=== PATIENT | female | born 2005 | race Caucasian/White ===

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

== ENCOUNTER 2024-12-18 02:38 | Emergency (ER) | payer MEDICAID, SELFPAY ==
[2024-12-18 02:38] VITALS: BP 113/85; PULSE 69; RESP 16; TEMP 36.4; O2SAT 99; BMI 31.1
--- NOTE | 2024-12-18 03:00 | EX.ED.DYSGE1 ---
HPI History of Present Illness Chief Complaint: Cold Sx Informant: patient Narrative Narrative: Patient is a 19-year-old female who reports a past medical history of allergies. She states that her fianc? has been sick with mild congestion and cough and ear pain. She states that today she has had a significant increase to her allergy symptoms with nasal congestion ear pressure cough and difficulty sleeping. She states she is unsure if this is related to just simply worsening of her allergies or potential infection and therefore she comes in for evaluation Patient denies any [facility] Medical History Migraine Clavicle fracture Home Medications ?Medication ?Instructions ?Recorded ?Last Taken ?Type azelastine 137 mcg (0.1 %) nasal 2 spray intranasal BID #30 mL 12/18/24 Unknown Rx spray codeine 10 mg-guaifenesin 100 mg/5 10 ml PO 4X/DAY PRN cold symptoms 12/18/24 Unknown Rx mL oral liquid 7 days #280 mL prednisone 20 mg tablet 40 mg (2 x 20 mg) PO DAILY 7 days 12/18/24 Unknown Rx #14 tabs Allergy/AdvReac Type Severity Reaction Status Date / Time No Known Allergies Allergy Verified 12/18/24 02:41 Social History household members: significant other Smoking Status: Never smoker substance use type: does not use ROS ROS ED Constitutional Constitutional ED: Denies chills or fever(s) Eyes Eyes: Denies change in vision ENT ENT ED: Reports ear pain, rhinorrhea and sore throat Cardiovascular Cardiovascular: Denies chest pain Respiratory/Chest Respiratory/Chest: Reports cough; Denies dyspnea Gastrointestinal Gastrointestinal: Denies abdominal pain, diarrhea, nausea or vomiting Genitourinary Genitourinary ED: Denies dysuria Musculoskeletal Musculoskeletal: Reports myalgias Integumentary Denies rash Neurologic Neurologic: Reports headache(s) Hematologic/Lymphatic Hematologic/Lymphatic: Denies easy bleeding or easy bruising Allergic/Immunologic Allergic/Immunologic ED: Denies mouth swelling or tongue swelling EXAM Physical Exam Const Vital Signs: 12/18/24 02:38 12/18/24 03:13 Temperature 97.6 F L Temperature Source Oral Pulse Rate 69 Respiratory Rate 16 Respiratory Effort Normal Respiratory Pattern Normal Blood Pressure 113/85 H Blood Pressure Mean 94 Pulse Ox 99 Oxygen Delivery Method Room Air Positive well nourished and well developed General Appearance ED: well developed; Negative for pallor HEENT HEENT Narrative: Bilateral canals are normal; bilateral TMs are retracted consistent with eustachian tube dysfunction but show no secondary findings to suggest infection Nasal mucosa is hyperemic and boggy with enlarged inferior nasal turbinates; there is purulent discharge present bilaterally No tongue or lip swelling no oral lesions no airway edema or compromise. There is cobblestoning noted in the posterior pharynx consistent with sinus drainage No significant pain with palpation over top of the frontal maxillary or ethmoid sinuses Eyes PERRL and EOMs intact bilaterally Neck supple Neck Narrative: Positive anterior cervical lymphadenopathy noted Resp normal respiratory effort and clear to auscultation bilaterally Cardio regular rate and regular rhythm Extremity normal to inspection Neuro oriented x3, CN's II-XII intact bilaterally and no sensory deficits noted Sensorium / Orientation: alert Motor Exam: strength 5/5 throughout Psych mental status grossly normal Skin no rashes or lesions noted and no wounds General Skin Exam: Negative for jaundice or pallor MDM MDM MDM Narrative Medical decision making narrative: Patient arrived to ER with stable vitals. She reported essentially 1 day a of increased sinus congestion drainage and cough with known sick contacts at home with similar symptoms. She is not hypoxic she is not in respiratory distress her breath sounds are clear and therefore I have low concern for pneumonia and I do not feel the need for a chest x-ray. Patient could have viral infection such as COVID influenza or RSV but as she is not hypoxic or in respiratory distress it would not change treatment options and therefore there is no need to obtain a viral swab either. The patient was informed that based on her history and exam her worsening symptoms are not due to worsening of her allergies but due to a viral upper respiratory tract infection. Also based on the fact she does not have significant sinus pain and symptoms only and present for roughly 1 day I have very low concern for bacterial sinusitis and therefore there is no need for emergent antibiotics. The patient will be placed on symptomatic medication to help control congestion and drainage and cough but without signs of systemic infection or respiratory distress she is otherwise safe for discharge History & Record Review Discussion w/independent historian: Patient Discharge Plan Triage Chief Complaint: Cold Sx ED Provider: Mamadou Malcolm Dx/Rx/DC Orders Clinical Impression: Viral upper respiratory infection, Acute dysfunction of both eustachian tubes Instructions: ED URI, Viral, No Abx (Adult) Prescriptions: New prednisone 20 mg tablet 40 mg PO DAILY 7 Days Qty: 14 0RF azelastine 137 mcg (0.1 %) spray,non-aerosol 2 spray intranasal BID Qty: 30 0RF Rx Instructions: administer into each nostril codeine-guaifenesin 10-100 mg/5 mL liquid 10 ml PO 4X/DAY PRN (Reason: cold symptoms) 7 Days Qty: 280 0RF Primary Care Provider: Jean Horne Referrals: Eriberto Hinton MD [Med Staff - Courtesy Staff, Ear Nose Throat (ENT)] Referral Note: Allergies Jean Horne, DO [Primary Care Provider, Internal Medicine] Activity Restrictions/Additional Instructions: Your history and exam is consistent with an upper respiratory tract infection. This is a virus that you picked up from out in the community. It is causing your underlying congestion from your allergies to be much worse. It should resolve in the next 2 to 3 weeks. Typically the first 5 to 7 days of the most severe. Take the prescribed medication as directed to help control symptoms. You may also use [id number] Afrin nasal spray by taking 2 sprays in each nostril at night and you can do this for 6 consecutive nights but then you must quit see do not become addicted to the nasal spray. Follow-up with your family doctor and/or ENT to discuss further allergy testing and workup and return to the ER should you have any further concerns Print Language: Persian Disposition Disposition: Home, Self Care Discharge Date/Time: 12/18/24 03:13
== END 2024-12-18 03:13 | disposition home or self-care (01) ==
PROVIDERS: Emergency Provider Emergency Medicine; PCP Family Medicine; Visit Provider Emergency Medicine
DX: J06.9 Acute upper respiratory infection, unspecified (principal); H69.93 Unspecified Eustachian tube disorder, bilateral
CPT/HCPCS: 99282

== ENCOUNTER 2025-01-26 06:20 | Emergency (ER) | payer MEDICAID, SELFPAY ==
[2025-01-26 06:21] VITALS: BP 117/68; PULSE 69; RESP 16; TEMP 36.6; O2SAT 100; BMI 32.3
[2025-01-26] MEDS: DiphenhydrAMINE 50 MG/ML Syringe IV (06:50)
[2025-01-26] MEDS: Ketorolac 30 MG/ML Syringe IV (06:50)
[2025-01-26] MEDS: 0.9% Normal Saline (1000mL) 1,000 ML 999 ML IV (06:51)
--- OUTSIDE RECORDS SUMMARY | 2025-01-26 07:06 | XMS RPT_ITS | CCD ---
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 Recommendations. Performed By: #### 4 6141 #### MH LAB [address] [address] Mauricio Doll M.D. [id number] Urea nitrogen [Mass/Vol] 6 mg/dL Low 8-25 [facility] Comment on above: Order Comment: [facility] has implemented the eGFR calculation approach that does not have a coefficient for race that conforms to the NKF-ASN Task Force Recommendations. Performed By: #### 4 6124 #### LAB [address] [address] Mauricio Doll M.D. [id number] Urea nitrogen/Creatinine [Mass ratio] 11.3 mg/mg Normal 10.0-20.0 [facility] Comment on above: Order Comment: [facility] has implemented the eGFR calculation approach that does not have a coefficient for race that conforms to the NKF-ASN Task Force Recommendations. Performed By: #### 4 6124 #### LAB [address] [address] Mauricio Doll M.D. [id number] CBC WITH AUTO DIFFERENTIALon 07-22-2023 AUTO NRBC 0.0 % [facility] Comment on above: Performed By: #### L [id number] #### LAB [address] [address] Mauricio Doll M.D. [id number] AUTO NRBC ABS COUNT 0.00 K/mcL Normal 0.00-0.00 [facility] Comment on above: Performed By: #### L [id number] #### LAB [address] [address] Mauricio Doll M.D. [id number] BASOPHILS ABSOLUTE COUNT 0.02 K/mcL Normal 0.00-0.30 [facility] Comment on above: Performed By: #### L [id number] #### LAB [address] [place] [address] Mauricio Doll M.D. [id number] Basophils/100 WBC (Bld) 0.2 % Normal [facility] Comment on above: Performed By: #### L [id number] #### LAB [address] [address] Mauricio Doll M.D. [id number] Eosinophils (Bld) [#/Vol] 0.13 10*3/uL Normal 0.00-0.50 [facility] Comment on above: Performed By: #### L [id number] #### LAB [address] [place] [address] Mauricio Doll M.D. [id number] Eosinophils/100 WBC (Bld) 1.5 % Normal [facility] Comment on above: Performed By: #### L [id number] #### LAB [address] [address] Mauricio Doll M.D. [id number] Erythrocyte distribution width (RBC) [Ratio] 13.8 % Normal 11.6-14.8 [facility] Comment on above: Performed By: #### L [id number] #### LAB [address] [address] Mauricio Doll M.D. [id number] Hematocrit (Bld) [Volume fraction] 36.5 % Normal 36.0-46.0 [facility] Comment on above: Performed By: #### L [id number] #### LAB [address] [address] Mauricio Doll M.D. [id number] Hemoglobin (Bld) [Mass/Vol] 11.3 g/dL Low 12.0-16.0 [facility] Comment on above: Performed By: #### L [id number] #### LAB [address] [address] Mauricio Doll M.D. [id number] IG ABSOLUTE 0.03 K/mcL Normal 0.00-0.30 [facility] Comment on above: Performed By: #### L [id number] #### LAB [address] [address] Mauricio Doll M.D. [id number] IG PERCENT 0.30 % Normal [facility] Comment on above: Result Comment: The IG parameter is the percentage of metamyelocytes, myelocytes and promyelocytes. An immature granulocyte count (IG) of 1% or more suggests the possibility of infection, an IG count of 3% is very likely related to an infection. Performed By: #### L [id number] #### LAB [address] [place] [address] Mauricio Doll M.D. [id number] Lymphocytes (Bld) [#/Vol] 1.89 10*3/uL Normal 0.90-4.00 [facility] Comment on above: Performed By: #### L [id number] #### LAB [address] [address] Mauricio Doll M.D. [id number] Lymphocytes/100 WBC (Bld) 21.7 % Normal [facility] Comment on above: Performed By: #### L [id number] #### LAB [address] [address] Mauricio Doll M.D. [id number] MCH (RBC) [Entitic mass] 25.6 pg Low 26.0-34.0 [facility] Comment on above: Performed By: #### L [id number] #### LAB [address] [address] Mauricio Doll M.D. [id number] MCV (RBC) [Entitic vol] 82.8 fL Normal 80.0-100.0 [facility] Comment on above: Performed By: #### L [id number] #### LAB [address] [address] Mauricio Doll M.D. [id number] MEAN CORPUSCULAR HEMOGLOBIN CONC 31.0 g/dL Normal 31.0-37.0 [facility] Comment on above: Performed By: #### L [id number] #### LAB [address] [address] Mauricio Doll M.D. [id number] Monocytes (Bld) [#/Vol] 0.64 10*3/uL Normal 0.30-0.90 [facility] Comment on above: Performed By: #### L [id number] #### LAB [address] [address] Mauricio Doll M.D. [id number] Monocytes/100 WBC (Bld) 7.3 % Normal [facility] Comment on above: Performed By: #### L [id number] #### LAB [address] [place] [address] Mauricio Doll M.D. [id number] NEUTROPHILS ABSOLUTE COUNT 6.00 K/mcL Normal 1.70-7.00 [facility] Comment on above: Performed By: #### L [id number] #### LAB [address] [address] Mauricio Doll M.D. [id number] Neutrophils/100 WBC (Bld) 69.0 % Normal [facility] Comment on above: Performed By: #### L [id number] #### MH LAB [address] [address] Mauricio Doll M.D. [id number] Platelet mean volume (Bld) [Entitic vol] 9.5 fL Normal 9.4-12.4 [facility] Comment on above: Performed By: #### L [id number] #### MH LAB [address] [address] Mauricio Doll M.D. [id number] Platelets (Bld) [#/Vol] 292 10*3/uL Normal 150-400 [facility] Comment on above: Performed By: #### L [id number] #### MH LAB [address] [address] Mauricio Doll M.D. [id number] RBC (Bld) [#/Vol] 4.41 10*6/uL Normal 4.00-5.20 [facility] Comment on above: Performed By: #### L [id number] #### MH LAB [address] [address] Mauricio Doll M.D. [id number] WBC (Bld) [#/Vol] 8.71 10*3/uL Normal 4.50-11.00 [facility] Comment on above: Performed By: #### L [id number] #### MH LAB [address] [address] Mauricio Doll M.D. [id number] ED Prov Noteon 07-22-2023 ED Prov Note [facility] ED DIANNA Note: NAME: Onofre Denise 18 y.o. CSN: [id number] PCP: No, Physician History: Chief Complaint: Vaginal Bleeding HPI: The history was obtained from the patient and spouse. Onofre is a 18 y.o. female who presents with a chief complaint of Vaginal Bleeding. Patient is and unknown LMP due to being on control. Started having symptoms a couple days ago and went to have labs drawn which showed HCG 38. Started having increased cramping and bleeding - only small amounts, not saturating a pad, mostly with wiping so she came back to the ER for further evaluation. No urinary symptoms, fever, chills, chest pain, shortness of breath, nausea, vomiting, diarrhea. She has an apt August 18 with unknown OB in [place], [place]. PMHx: Past Medical History: Diagnosis Date Migraines PMSx: History reviewed. No pertinent surgical history. FAM. Hx: History reviewed. No pertinent family history. SOC. Hx: Social History Socioeconomic History Marital status: Single Tobacco Use Smoking status: Never Smokeless tobacco: Never Vaping Use Vaping Use: Never used Substance and Sexual Activity Alcohol use: Not Currently Drug use: Never MEDs: Previous Medications Medication Sig ondansetron (ZOFRAN-ODT) 4 MG disintegrating tablet Dissolve 1 (one) tablet (4 mg total) on top of tongue every 6 to 8 hours as needed for nausea . vitamin with Ca-Iron-FA 27-1 mg Tab Take 1 (one) tablet by mouth daily . ALL: No Known Allergies ROS: Positives and pertinent negatives as per HPI. All other systems were reviewed and are negative. Physical Exam: Patient Vitals for the past 24 hrs: BP Temp Temp src Pulse Resp SpO2 07/22/23 1121 115/74 -- -- 71 16 96 % 07/22/23 1005 125/80 98.2 degrees F (36.8 degrees C) Oral 78 14 98 % Physical Exam Vitals and nursing note reviewed. Constitutional: General: She is not in acute distress. Appearance: Normal appearance. She is well-developed. She is not ill-appearing or toxic-appearing. HENT: Head: Normocephalic and atraumatic. Nose: Nose normal. Eyes: General: No scleral icterus. Conjunctiva/sclera: Conjunctivae normal. Cardiovascular: Rate and Rhythm: Normal rate and regular rhythm. Heart sounds: Normal heart sounds. No murmur heard. Musculoskeletal: Right lower leg: No swelling. No edema. Left lower leg: No swelling. No edema. Pulmonary: Effort: Pulmonary effort is normal. No respiratory distress. Breath sounds: Normal breath sounds and air entry. Abdominal: General: Abdomen is flat. There is no distension. Palpations: Abdomen is soft. Tenderness: There is abdominal tenderness in the suprapubic area. Skin: General: Skin is warm and dry. Findings: No rash. Neurological: General: No focal deficit present. Mental Status: She is alert and oriented to person, place, and time. Psychiatric: Behavior: Behavior normal. Behavior is cooperative. Laboratory & Radiological Imaging (if done): Labs Reviewed HCG, BLOOD, QUANTITATIVE - Abnormal; Notable for the following components: Result Value hCG Quant 9 (*) All other components within normal limits Narrative: Males and non females: <5 mIU/mL Females during : 3-4 weeks 9-130 mIU/mL 4-5 weeks 75-2600 mIU/mL 5-6 weeks 850-20,800 mIU/mL 6-7 weeks 4000-100,200 mIU/mL 7-12 weeks 11,500-289,000 mIU/mL 12-16 weeks 18,300-137,000 mIU/mL 16-29 weeks 1,400-53,000 mIU/mL 29-41 weeks 940-60,000 mIU/mL URINALYSIS - Abnormal; Notable for the following components: Specific [place] 1.028 (*) Blood, Urine Large (*) RBCs, Urine >180 (*) Squamous Epithelial 5 (*) All other components within normal limits Narrative: Microscopic examination is performed on all urinalysis samples and only positive findings are reported. The test for blood on the chemical analytic portion of urinalysis may also be positive due to hemoglobinuria and myoglobinuria and if red blood cells are present they are quantified by microscopic examination. BASIC METABOLIC PANEL - Abnormal; Notable for the following components: BUN 6 (*) All other components within normal limits Narrative: [facility] has implemented the eGFR calculation approach that does not have a coefficient for race that conforms to the NKF-ASN Task Force Recommendations. CBC WITH AUTO DIFFERENTIAL - Abnormal; Notable for the following components: Hemoglobin 11.3 (*) MCH 25.6 (*) All other components within normal limits CBC AND DIFFERENTIAL Narrative: The following orders were created for panel order CBC w/ Diff. Procedure Abnormality Status --------- ------ CBC Auto Differential[[id number]] Abnormal Final result Please view results for these tests on the individual orders. US OB Transvaginal with Color Flow any Trimester Final Result 1. No evidence of intrauterine or ectopic (more content not included)... Normal [facility] HCG, BLOOD, QUANTITATIVEon 0 07-22-2023 HCG, QUANTITATIVE 9 mIU/mL High 0-5 [facility] Comment on above: Order Comment: Males and non females: <5 mIU/mL Females during : 3-4 weeks 9-130 mIU/mL 4-5 weeks 75-2600 mIU/mL 5-6 weeks 850-20,800 mIU/mL 6-7 weeks 4000-100,200 mIU/mL 7-12 weeks 11,500-289,000 mIU/mL 12-16 weeks 18,300-137,000 mIU/mL 16-29 weeks 1,400-53,000 mIU/mL 29-41 weeks 940-60,000 mIU/mL Performed By: #### 4 [id number] #### LAB [address] [place], [place] [address] Mauricio Doll M.D. [id number] URINALYSISon 07-22-2023 BACTERIA, URINE None Seen Normal None Seen [facility] Comment on above: Order Comment: Micro scopic examination is performed on all urinalysis samples and only positive findings are reported. The test for blood on the chemical analytic portion of urinalysis may also be positive due to hemoglobinuria and myoglobinuria and if red blood cells are present they are quantified by microscopic examination. Performed By: #### 4 6625 #### LAB [address] [place], [place] [address] Mauricio Doll M.D. [id number] BILIRUBIN, URINE Negative Normal Negative [facility] Comment on above: Order Comment: Micro scopic examination is performed on all urinalysis samples and only positive findings are reported. The test for blood on the chemical analytic portion of urinalysis may also be positive due to hemoglobinuria and myoglobinuria and if red blood cells are present they are quantified by microscopic examination. Performed By: #### 4 6625 #### LAB [address] [address] Mauricio Doll M.D. [id number] BLOOD, URINE Large Abnormal Negative [facility] Comment on above: Order Comment: Micro scopic examination is performed on all urinalysis samples and only positive findings are reported. The test for blood on the chemical analytic portion of urinalysis may also be positive due to hemoglobinuria and myoglobinuria and if red blood cells are present they are quantified by microscopic examination. Performed By: #### 4 6625 #### LAB [address] [address] Mauricio Doll M.D. [id number] Clarity (U) Clear Normal Clear [facility] Comment on above: Order Comment: Micro scopic examination is performed on all urinalysis samples and only positive findings are reported. The test for blood on the chemical analytic portion of urinalysis may also be positive due to hemoglobinuria and myoglobinuria and if red blood cells are present they are quantified by microscopic examination. Performed By: #### 4 6625 #### LAB [address] [address] Mauricio Doll M.D. [id number] Color (U) Yellow Normal Colorless, Yellow [facility] Comment on above: Order Comment: Micro scopic examination is performed on all urinalysis samples and only positive findings are reported. The test for blood on the chemical analytic portion of urinalysis may also be positive due to hemoglobinuria and myoglobinuria and if red blood cells are present they are quantified by microscopic examination. Performed By: #### 4 6625 #### LAB [address] [address] Mauricio Doll M.D. [id number] Glucose Ql (U) Negative Normal Negative [facility] Comment on above: Order Comment: Micro scopic examination is performed on all urinalysis samples and only positive findings are reported. The test for blood on the chemical analytic portion of urinalysis may also be positive due to hemoglobinuria and myoglobinuria and if red blood cells are present they are quantified by microscopic examination. Performed By: #### 4 6625 #### LAB [address] [id number] Mauricio Doll M.D. [id number] Ketones Ql (U) Negative Normal Negative [facility] Comment on above: Order Comment: Micro scopic examination is performed on all urinalysis samples and only positive findings are reported. The test for blood on the chemical analytic portion of urinalysis may also be positive due to hemoglobinuria and myoglobinuria and if red blood cells are present they are quantified by microscopic examination. Performed By: #### 4 6625 #### LAB [address] [address] Mauricio Doll M.D. [id number] Leukocyte esterase Test strip Ql (U) Negative Normal Negative [facility] Comment on above: Order Comment: Micro scopic examination is performed on all urinalysis samples and only positive findings are reported. The test for blood on the chemical analytic portion of urinalysis may also be positive due to hemoglobinuria and myoglobinuria and if red blood cells are present they are quantified by microscopic examination. Performed By: #### 4 6625 #### LAB [address] [address] Mauricio Doll M.D. [id number] MUCUS, URINE Rare Normal None Seen, [facility] Comment on above: Order Comment: Micro scopic examination is performed on all urinalysis samples and only positive findings are reported. The test for blood on the chemical analytic portion of urinalysis may also be positive due to hemoglobinuria and myoglobinuria and if red blood cells are present they are quantified by microscopic examination. Performed By: #### 4 6625 #### LAB [address] [address] Mauricio Doll M.D. [id number] NITRITE, URINE Negative Normal [facility] Comment on above: Order Comment: Micro scopic examination is performed on all urinalysis samples and only positive findings are reported. The test for blood on the chemical analytic portion of urinalysis may also be positive due to hemoglobinuria and myoglobinuria and if red blood cells are present they are quantified by microscopic examination. Performed By: #### 4 6625 #### LAB [address] [id number] Mauricio Doll M.D. [id number] pH (U) 6.5 [pH] Normal 5.0-7.0 [facility] Comment on above: Order Comment: Micro scopic examination is performed on all urinalysis samples and only positive findings are reported. The test for blood on the chemical analytic portion of urinalysis may also be positive due to hemoglobinuria and myoglobinuria and if red blood cells are present they are quantified by microscopic examination. Performed By: #### 4 6625 #### LAB [address] [id number] Mauricio Doll M.D. [id number] PROTEIN, URINE Negative Normal Negative [facility] Comment on above: Order Comment: Micro scopic examination is performed on all urinalysis samples and only positive findings are reported. The test for blood on the chemical analytic portion of urinalysis may also be positive due to hemoglobinuria and myoglobinuria and if red blood cells are present they are quantified by microscopic examination. Performed By: #### 4 6625 #### LAB [address] [address] Mauricio Doll M.D. [id number] RBC, URINE > High 0-3 [facility] Comment on above: Order Comment: Micro scopic examination is performed on all urinalysis samples and only positive findings are reported. The test for blood on the chemical analytic portion of urinalysis may also be positive due to hemoglobinuria and myoglobinuria and if red blood cells are present they are quantified by microscopic examination. Performed By: #### 4 6625 #### LAB [address] [address] Mauricio Doll M.D. [id number] Specific gravity (U) [Rel density] 1.028 High 1.005-1.025 [facility] Comment on above: Order Comment: Micro scopic examination is performed on all urinalysis samples and only positive findings are reported. The test for blood on the chemical analytic portion of urinalysis may also be positive due to hemoglobinuria and myoglobinuria and if red blood cells are present they are quantified by microscopic examination. Performed By: #### 4 6625 #### LAB [address] [place], [place] [address] Mauricio Doll M.D. [id number] SQUAMOUS EPITHELIAL 5 /hpf High 0-4 [facility] Comment on above: Order Comment: Micro scopic examination is performed on all urinalysis samples and only positive findings are reported. The test for blood on the chemical analytic portion of urinalysis may also be positive due to hemoglobinuria and myoglobinuria and if red blood cells are present they are quantified by microscopic examination. Performed By: #### 4 6625 #### LAB [address] [place], [place] [address] Mauricio Doll M.D. [id number] TRANSITIONAL EPITHELIAL < Normal 0-1 [facility] Comment on above: Order Comment: Micro scopic examination is performed on all urinalysis samples and only positive findings are reported. The test for blood on the chemical analytic portion of urinalysis may also be positive due to hemoglobinuria and myoglobinuria and if red blood cells are present they are quantified by microscopic examination. Performed By: #### 4 6625 #### LAB [address] [place], [place] [address] Mauricio Doll M.D. [id number] UROBILINOGEN, URINE <2.0 Normal <2.0 [facility] Comment on above: Order Comment: Micro scopic examination is performed on all urinalysis samples and only positive findings are reported. The test for blood on the chemical analytic portion of urinalysis may also be positive due to hemoglobinuria and myoglobinuria and if red blood cells are present they are quantified by microscopic examination. Performed By: #### 4 6625 #### LAB [address] [place], [place] [address] Mauricio Doll M.D. [id number] WBC LM.HPF (Urine sed) [#/Area] 3 /[HPF] Normal 0-5 [facility] Comment on above: Order Comment: Micro scopic examination is performed on all urinalysis samples and only positive findings are reported. The test for blood on the chemical analytic portion of urinalysis may also be positive due to hemoglobinuria and myoglobinuria and if red blood cells are present they are quantified by microscopic examination. Performed By: #### 4 6625 #### [facility] [address] [facility] [address] Mauricio Doll M.D. [id number] US OB TRANSVAGINAL WITH COLO R FLOW ANY TRIMESTERon 07-22-2023 US OB TRANSVAGINAL WITH COLOR FLOW ANY TRIMESTER EXAMINATION: US OB TRANSVAGINAL WITH COLOR FLOW ANY TRIMESTER HISTORY: ORDERING SYSTEM PROVIDED HISTORY: bleeding cramping, TECHNOLOGIST PROVIDED HISTORY: Illness/Other Reason for exam: Vaginal bleeding Cancer History: . Surgery, RadiationHistory: . Encounter Type: Subsequent/Follow-up Additional signs and symptoms: . ORDERING SYSTEM PROVIDED DIAGNOSIS CODES: COMPARISON: Ultrasound from 07/18/2023. TECHNIQUE: ultrasound utilizing B-mode, M-mode, color Doppler and spectral analysis. FINDINGS: Uterus measures 8.4 x 3.4 x 4.9 cm. Right ovary measures 3.1 x 3.4 x 1.9 cm. Left ovary measures 3.8 x 3.6 x 1.6 cm. There is free fluid in the pelvis. The uterus is anteverted. Tiny ovarian follicles are present peripherally involving both ovaries. Findings could be seen in patients with polycystic ovarian syndrome in the appropriate clinical setting. Arterial and venous waveforms are present with respect to both ovaries. No convincing evidence of ovarian torsion. Dominant left ovarian follicle present, 1.2 cm. Mullerian duct anomaly. Right endometrial stripe measuring 5 mm. Left endometrial stripe measuring 4 mm. Findings could represent a septate uterus but are incompletely evaluated. No evidence of intrauterine gestation. No sign of ectopic . No beta HCG level available at the time of today's examination. . IMPRESSION: 1. No evidence of intrauterine or ectopic on the images provided. 2. Ovarian follicular changes bilaterally could indicate polycystic ovarian syndrome in the appropriate setting. 3. Trace free fluid in the pelvis. 4. Please correlate with beta HCG level given the provided history. Workstation ID: [id number] Dictated by: JOEY MARTIN on ThuJuly 22, 2023 11:24:47 AM EDT Transcribed by: JOEY MARTIN on ThuJuly 22, 2023 11:24:47 AM EDT Finalized by: JOEY MARTIN on ThuJuly 22, 2023 11:24:47 AM EDT [facility] Comment on above: Order Comment: Injur y/Trauma or Illness?:Illness/Other How long have you had these symptoms (acute/chronic)?:Acute Reason for exam?:Vaginal beeding History of cancer?:. Surgeries, chemotherapy, or radiation?:. Type of Exam?:Subsequent/Follow-up Additional signs and symptoms?:. ABO/RH(D)on 07-18-2023 ABO/RH(D) Positive [facility] Comment on above: Performed By: #### A BR ####Testing performed at [address] [address] ABO/RH(D) TYPINGon 4 ABO and Rh group Nom (Bld ) Positive [facility] BHCG,QUANTITATIVEon 07-18-19 24 BHCG,QUANTITATIVE 38.19 MIU/ML Normal [facility] Comment on above: Result Comment: BHCG INTERPRETIVE RANGES: NON FEMALE 0-6 MIU/ML MALE ADULT 0-2 MIU/ML 0-1 WEEK 6-50 MIU/ML 1-2 WEEKS 40-300 MIU/ML 2-3 WEEKS 100-1,000 MIU/ML 3-4 WEEKS 500-6,000 MIU/ML 1-2 MONTHS 5,000-200,000 MIU/ML 2-3 MONTHS 10,000-100,000 MIU/ML 2ND TRIMESTER 3,000-50,000 MIU/ML 3RD TRIMESTER 1,000-50,000 MIU/ML If an hCG level is inconsistent with, or unsupported by, clinical evidence, results should be confirmed by an alternate hCG method. This method may include the qualitative hCG testing of urine. Performed By: #### B HCG2 ####Testing performed at [address] [address] Narrative [Interpretat ion] Study observation.general transvaginal 1st trimester USon 07-18-2023 IMPRESSION: No evidence of intrauterine . No findings suspicious for ectopic . Small hypoechoic area right ovary could be a small cyst/ follicle or developing corpus luteum nonspecific. 1.2 cm. Recommend correlation with quantitative ECG level and follow-up ultrasound as indicated. Differential diagnosis includes early IUP not yet visualized, ectopic or recent spontaneous miscarriage. RADIOLOGY EXAM: US OB TRANSVAGINAL/CERVICAL LENGTH HISTORY: right pelvic pain and POS (R/O ectopic) COMPARISON: None. TECHNIQUE: Spiral transabdominal and internal transvaginal pelvic ultrasound with grayscale and color Doppler imaging. FINDINGS: Normal appearing uterus for age without uterine mass or endometrial thickening. No evidence of gestational sac, yolk sac or pole within the uterus. Uterus anteverted measures 8.5 x 3.9 x 5.7 cm. Normal flow to the right ovary with an anechoic cystic area 1.2 cm. Right ovary measures 4.1 x 2 x 3.5 cm. Left ovary unremarkable, measures 3.6 x 3.5 x 3.3 cm. Normal blood flow. No adnexal mass outside of either ovary. Small amount of free fluid. RADIOLOGY Shahid Flores MD - 07/18/2023 EXAM: US OB TRANSVAGINAL/CERVICAL LENGTH HISTORY: right pelvic pain and POS (R/O ectopic) COMPARISON: None. TECHNIQUE: Spiral transabdominal and internal transvaginal pelvic ultrasound with grayscale and color Doppler imaging. FINDINGS: Normal appearing uterus for age without uterine mass or endometrial thickening. No evidence of gestational sac, yolk sac or pole within the uterus. Uterus anteverted measures 8.5 x 3.9 x 5.7 cm. Normal flow to the right ovary with an anechoic cystic area 1.2 cm. Right ovary measures 4.1 x 2 x 3.5 cm. Left ovary unremarkable, measures 3.6 x 3.5 x 3.3 cm. Normal blood flow. No adnexal mass outside of either ovary. Small amount of free fluid. IMPRESSION IMPRESSION: No evidence of intrauterine . No findings suspicious for ectopic . Small hypoechoic area right ovary could be a small cyst/ follicle or developing corpus luteum nonspecific. 1.2 cm. Recommend correlation with quantitative ECG level and follow-up ultrasound as indicated. Differential diagnosis includes early IUP not yet visualized, ectopic or recent spontaneous miscarriage. [facility] Radiology Study observation (narrative) [facility] Narrative [Interpretat ion] Study observation.general transvaginal 1st trimester USOrdered By: Shahid Flores on 07-18-2023 [facility] Work Phone: HCG ( test) Qlon HCG.beta subunit Qn 38.19 m[IU]/mL MIU/ML A [facility] Comment on above: [facility] [place]: NON FEMALE 0-6 MIU/ML MALE ADULT 0-2 MIU/ML 0-1 WEEK 6-50 MIU/ML 1-2 WEEKS 40-300 MIU/ML 2-3 WEEKS 100-1,000 MIU/ML 3-4 WEEKS 500-6,000 MIU/ML 1-2 MONTHS 5,000-200,000 MIU/ML 2-3 MONTHS 10,000-100,000 MIU/ML 2ND TRIMESTER 3,000-50,000 MIU/ML 3RD TRIMESTER 1,000-50,000 MIU/ML If an hCG level is inconsistent with, or unsupported by, clinical evidence, results should be confirmed by an alternate hCG method. This method may include the qualitative hCG testing of urine. [facility] HCG ( test) Ql (U)o n 07-18-2023 Interpretation and review of laboratory results Abnormal [facility] HCG QUALITATIVE, URINEon HCG ( test) Ql (U) Positive Abnormal NEGATIVE [facility] URINALYSIS, MACROon 07-18-19 24 Bilirubin Ql (U) Negative NEGATIVE [facility] Clarity (U) CLEAR CLEAR [facility] Color (U) YELLOW YELLOW [facility] Glucose Test strip (U) [Mass/Vol] Negative NEGATIVE mg/dl [facility] Hemoglobin Ql (U) Negative NEGATIVE [facility] Interpretation and review of laboratory results Abnormal [facility] Ketones (U) [Mass/Vol] TRACE Abnormal NEGATIVE mg/dl [facility] Leukocyte esterase Test strip Ql (U) Negative NEGATIVE [facility] Nitrite Ql (U) Negative NEGATIVE [facility] pH (U) 6.0 [pH] 5.0 - 7.0 [facility] Protein Ql (U) Negative NEGATIVE mg/dl [facility] Specific gravity (U) [Rel density] >1.030 High 1.010 - 1.025 [facility] Urobilinogen (U) [Mass/Vol] 0.2 mg/dL [facility] URINE HCG QUALon 07-18-2023 Beta HCG ( test) Ql (U) Positive Abnormal NEGATIVE [facility] Comment on above: Performed By: #### U HCGT, UMAC #### Testing performed at [address] [address] URINE MACROSCOPICon 07-18-19 Bilirubin Ql (U) Negative Normal NEGATIVE [facility] Comment on above: Performed By: #### U HCGT, UMAC #### Testing performed at [address] [address] Clarity (U) CLEAR Normal CLEAR [facility] Comment on above: Performed By: #### U HCGT, UMAC #### Testing performed at [address] [address] Color (U) YELLOW Normal YELLOW [facility] Comment on above: Performed By: #### U HCGT, UMAC #### Testing performed at [address] [address] Glucose Ql (U) Negative Normal NEGATIVE [facility] Comment on above: Performed By: #### U HCGT, UMAC #### Testing performed at [address] [address] pH (U) 6.0 [pH] Normal 5.0-7.0 [facility] Comment on above: Performed By: #### U HCGT, UMAC #### Testing performed at [address] [address] URINE HEMOGLOBIN Negative Normal NEGATIVE [facility] Comment on above: Performed By: #### U HCGT, UMAC #### Testing performed at [address] [address] URINE KETONE TRACE Abnormal NEGATIVE [facility] Comment on above: Performed By: #### U HCGT, UMAC #### Testing performed at [address] [address] URINE LEUKOTEST Negative Normal NEGATIVE [facility] Comment on above: Performed By: #### U HCGT, UMAC #### Testing performed at [address] [address] URINE NITRATES Negative Normal NEGATIVE [facility] Comment on above: Performed By: #### U HCGT, UMAC #### Testing performed at [address] [address] URINE SPEC GRAVITY >1.030 High 1.010-1.025 [facility] Comment on above: Performed By: #### U HCGT, UMAC #### Testing performed at [address] [address] URINE TOTAL PROTEIN Negative Normal NEGATIVE [facility] Comment on above: Performed By: #### U HCGT, UMAC #### Testing performed at [address] [address] Urobilinogen Qn (U) 0.2 {Audi'U}/dL Normal 0.2-1.0 [facility] Comment on above: Performed By: #### U HCGT, UMAC #### Testing performed at [address] [address] US OB TRANSVAGINAL/CERVICAL LENGTHon 07-18-2023 US OB TRANSVAGINAL/CERVICA L LENGTH EXAM: US OB TRANSVAGINAL/CERVICAL LENGTH HISTORY: right pelvic pain and POS (R/O ectopic) COMPARISON: None. TECHNIQUE: Spiral transabdominal and internal transvaginal pelvic ultrasound with grayscale and color Doppler imaging. FINDINGS: Normal appearing uterus for age without uterine mass or endometrial thickening. No evidence of gestational sac, yolk sac or pole within the uterus. Uterus anteverted measures 8.5 x 3.9 x 5.7 cm. Normal flow to the right ovary with an anechoic cystic area 1.2 cm. Right ovary measures 4.1 x 2 x 3.5 cm. Left ovary unremarkable, measures 3.6 x 3.5 x 3.3 cm. Normal blood flow. No adnexal mass outside of either ovary. Small amount of free fluid. IMPRESSION: No evidence of intrauterine . No findings suspicious for ectopic . Small hypoechoic area right ovary could be a small cyst/ follicle or developing corpus luteum nonspecific. 1.2 cm. Recommend correlation with quantitative ECG level and follow-up ultrasound as indicated. Differential diagnosis includes early IUP not yet visualized, ectopic or recent spontaneous miscarriage. Normal [facility] CNOVon 06-01-2023 CNOV Office Visit (OBGYWM ) ONOFRE DENISE ([id number]) 1 F Date Time Provider Department 06/01/23 4:00 PM JADA FRENCH OBGYWM During your visit today, we recorded the following information about you: Blood pressure Weight 120/82 95.3 kg Jada French APRN.REFERRAL MANAGER 06/01/2023 4:53 PM Signed Field Placement Director offered: Patient declines. Jones is a 18 year old who presents for Nexplanon removal for desires conception. UNIVERSAL PROTOCOL / SAFETY CHECKLIST Procedure to be Performed: Nexplanon removal Sign In: A Moment of CARE was completed. Personnel directly involved with the procedure wore the appropriate PPE (Personal Protective Equipment). Patient/Surrogate Stated/Verified: PATIENT VERIFIED(optional for EMERGENT procedures): Patient name, Date of , Relevant allergies, and The intended procedure Time Out Communication: Intended patient and procedure match the source documents. Consent documented and matches the intended procedure. Sign Out: SIGN OUT (optional for EMERGENT procedures): No specimen collected. All instruments, equipment, possible retained foreign bodies accounted for. Post-procedure follow-up management communicated and Plan of Care Visit completed when applicable. Nesha Jane LPN TECHNIQUE: Patient placed in supine position with left arm bent at the elbow and placed over the head. Skin cleansed with betadine. 2mL of 1% lidocaine with epi injected subQ along insertion site. Scalpel used to made a 5mm stab incision superficially at distal end of Nexplanon. Device removed under sterile technique with a small hemostat. Sterile pressure dressing applied. AANDP: 18 year old here for Nexplanon removal Nexplanon removed intact without difficulty. The patient was instructed to remove the dressing after 24 hours. Jada French APRN.[facility] Referring Provider: TRACEE MCDANIEL [[id number]] Allergies As of Date: 06/01/2023 (No Known Allergies) Date Reviewed: 06/01/2023 Reviewed by: Nesha Jane LPN - Fully Assessed Reason for Visit: Nexplanon removal [Other] Primary Visit Diagnosis:Encounter for Nexplanon removal [Z30.46] Problem List As Of Date: 06/01/2023 (None) Medications Discontinued During This Encounter Prescriptions - etonogestrel (NEXPLANON) subdermal implant 68 mg (Discontinued) 1 Each by SUBDERMAL route as directed. Encounter Status:Closed by JADA FRENCH on 06/01/23 [facility] ONO[facility]RE DEN[facility] ([id number]) 1 F Date Time Provider Department 04/28/23 TRACEE MCDANIEL OBGYWM During your visit today, we recorded the following information about you: Malia Sarkarfer 04/28/2023 5:25 PM Signed Pt would like to have her Nexplanon IUD removed. Lalitha Connolly RN 04/29/2023 8:43 AM Signed Patient wants Nexplanon removed and wants no other type of control for now. Appointment scheduled. Please file order to attach to appointment. KAMILLE Long Lindsey, RN 04/29/2023 11:28 AM Signed Order linked to upcoming appointment. Elena Antunez RN Allergies As of Date: 04/28/2023 (No Known Allergies) Date Reviewed: 10/13/2022 Reviewed by: Carolyn Gonzalez Ma - Fully Assessed Reason for Visit: Orders [681] Primary Visit Diagnosis:Nexplanon removal [Z30.46] Order(s):NEXPLANON REMOVAL [[id number]] Order #: [id number] Prescriptions as of 04/29/2023 - etonogestrel (NEXPLANON) subdermal implant 68 mg 1 Each by SUBDERMAL route as directed. Problem List As Of Date: 04/28/2023 (None) Encounter Status:Closed by [facility]LE[facility] (OBGYWM) ONOFRE DENISE ([id number]) 1 F Date Time Provider Department 04/15/23 TRACEE MCDANIEL During your visit today, we recorded the following information about you: Lalitha Connolly RN 04/15/2023 11:01 AM Signed Patient calling c/o RLQ pain that started today. Has Nexplanon in place, but had faint positive UPT about 2 weeks ago. When pain started today she took another UPT and it was negative. Rating pain 6/10 on pain scale at it's worse. Gets worse with sharp/shooting pain when up and moving and is more of a dull ache when sitting/lying still. Unsure of her LMP because of Nexplanon she doesn't have menses every month. She states it has been awhile though. No other symptoms as of now. Please advise. KAMILLE Long Amy, APRN.REFERRAL MANAGER 04/15/2023 12:51 PM Signed RLQ worse with any movement - she really should be evaluated in ED for appendicitis. They will do a test before any imaging. Tracee Mcdaniel APRN.Elena Evangelista RN 04/15/2023 12:56 PM Signed Patient notified and voiced understanding of below information and instructions. Patient will go to ER. Elena Antunez RN Allergies As of Date: 04/15/2023 (No Known Allergies) Date Reviewed: 10/13/2022 Reviewed by: Carloyn Gonzalez Ma - Fully Assessed Reason for Visit: Pelvic Pain [282] Cmt: Prescriptions as of 04/15/2023 - etonogestrel (NEXPLANON) subdermal implant 68 mg 1 Each by SUBDERMAL route as directed. Problem List As Of Date: 04/15/2023 (None) Encounter Status:Closed by ELENA ANTUNEZ on 04/15/23 [facility] CNOVon 10-13-2022 CNOV Office Visit (OBGYWM ) ONOFRE DENISE ([id number]) 1 F Date Time Provider Department 10/13/22 1:40 PM AMINATA WAGONER OBGYWM During your visit today, we recorded the following information about you: Blood pressure Weight Last Period 110/70 85.3 kg 10/08/22 Aminata Wagoner MD 10/13/2022 2:10 PM Signed Field Placement Director offered: Patient declines. Onofre Denise is a 17 year old female who presents for follow up from ER visit from [facility] a few weeks ago for pelvic pain. Pt reports pain was so bad she had nausea and vomiting associated with it. She states at that time she was starting a new workout regimen. She wonders if her Nexplanon the source of her pain. Patient reports she has menstrual cycle every 3 to 4 months. Patient states she has no pain today. She states the last time she had pain was approximately a week ago when she was carrying a heavy laundry basket. Pt reports no dysuria but states does have diarrhea at times. OB History T0 L0 SAB0 IAB0 Ectopic0 Multiple0 Live Births0 Lab Coordinator History LMP: 09/17/2020 (Exact Date), Having periods Age at Menarche: Age at First : Age at Menopause: Lab Coordinator History Comments: Sexual Activity: Never; No partner data on record Contraception: No contraception data on record No past medical history on file. PAST SURGICAL HISTORY Procedure Laterality Date EXTRACTION ERUPTED TOOTH/EXR NEXPLANON INSERTION Left No family history on file. Social History Tobacco Use Smoking status: Never Smokeless tobacco: Never Vaping Use Vaping Use: Never used Substance Use Topics Alcohol use: Never Drug use: Never Current Outpatient Medications Medication Sig etonogestrel (NEXPLANON) subdermal implant 68 mg 1 Each by SUBDERMAL route as directed. No current facility-administered medications for this visit. Allergies As of Date: 10/13/2022 (No Known Allergies) Fully Assessed 07/23/2022 REVIEW OF SYSTEMS Abdomen: no pain Bladder: no dysuria.. Expanded ROS: GENERAL: Negative for fever Allergies and current medication updated:Yes EXAM: BP 110/70 Wt 188 lb (85.3kg) LMP 10/08/2022 GENERAL: pleasant, female in no apparent distress HEENT: Normocephalic, atraumatic, mucus membranes moist, and no lesions NECK: full range of motion DERMATOLOGY: Normal, without lesions, non-icteric, and non-hirsute ABDOMEN: soft, non-tender, no masses, rebound Absent, and guarding Absent. Deep palpation of R and L psoas muscle reproduces pain. NEURO: alert and oriented x3,exam grossly non-focal EXTREMITIES: normal ASSESSMENT AND PLAN: Encounter Diagnosis ICD-10-CM 1. Right lower quadrant abdominal pain R10.31 2. Psoas muscle strain, right, initial encounter S76.011A 3. Discussed with the patient that I feel her pain is likely musculoskeletal in nature and likely originating from the psoas muscle. Upon deep palpation she has pain on the right and left psoas muscles. We discussed how to stretch the psoas muscles. Also discussed proper warm up and cool down after exercising. Seems that her pain is exacerbated with exercise and lifting. 4. CT and pelvic ultrasound imaging were reviewed on care everywhere they were both negative for uterine or ovarian pathology. This was discussed with the patient. Other causes of pelvic pain including GI and bladder were reviewed with patient. Discussed that if pain persists or gets worse I would recommend a GI consult. 4. Discussed that nexplanon Is not the source of her discomfort. Discussed hormone therapy's role for chronic pelvic pain. I spent a total of 20 minutes on the date of the service which included preparing to see the patient, [id number] patient care, completing clinical documentation, obtaining and/or reviewing separately obtained history, performing a medically appropriate examination, and counseling and educating the patient/family/caregi george. Aminata Walker MD Allergies As of Date: 10/13/2022 (No Known Allergies) Date Reviewed: 10/13/2022 Reviewed by: Carolyn Gonzalez Ma - Fully Assessed Reason for Visit: Pelvic Pain [282] Primary Visit Diagnosis:Right lower quadrant abdominal pain [R10.31] Other Visit Diagnosis:Psoas muscle strain, right, initial encounter [S76.011A] Prescriptions as of 10/13/2022 - etonogestrel (NEXPLANON) subdermal implant 68 mg 1 Each by SUBDERMAL route as directed. Problem List As Of Date: 10/13/2022 (None) Encounter Status:Closed by AMINATA DE LA CRUZ on 10/13/22 Normal [facility] CBCon 09-26-2022 ABSOLUTE BAS 0.0 10*3/uL Normal 0.0-0.2 [facility] Comment on above: Performed By: #### ROLANDA Stephenson ACBC #### Testing performed at [address] [address] ABSOLUTE EOS 0.1 10*3/uL Normal 0.0-0.7 [facility] Comment on above: Performed By: #### ROLANDA Stephenson ACBC #### Testing performed at [address] [address] ABSOLUTE NEUTROPHIL COUNT 7.3 10*3/uL High 1.4-6.5 [facility] Comment on above: Performed By: #### ROLANDA Stephenson ACBC #### Testing performed at [address] [address] Basophils/100 WBC (Bld) 0.4 % Normal 0.0-2.0 [facility] Comment on above: Performed By: #### ROLANDA Stephenson ACBC #### Testing performed at [address] [place] [address] DTYPE AUTO DIFF Normal [facility] Comment on above: Performed By: #### ROLANDA Stephenson ACBC #### Testing performed at [address] [place] [address] Eosinophils/100 WBC (Bld) 1.1 % Normal 0.0-11.0 [facility] Comment on above: Performed By: #### ROLANDA Stephenson ACBC #### Testing performed at [address] [place] [address] Lymphocytes (Bld) [#/Vol] 1.7 10*3/uL Normal 1.2-3.4 [facility] Comment on above: Performed By: #### ROLANDA Stephenson ACMATT #### Testing performed at [address] [address] Lymphocytes/100 WBC (Bld) 16.8 % Low 20.0-55.0 [facility] Comment on above: Performed By: #### ROLANDA Stephenson ACBC #### Testing performed at [address] [address] Monocytes (Bld) [#/Vol] 0.8 10*3/uL High 0.0-0.7 [facility] Comment on above: Performed By: #### ROLANDA Stephenson ACBC #### Testing performed at [address] [place] [address] Monocytes/100 WBC (Bld) 7.9 % Normal 0.0-10.0 [facility] Comment on above: Performed By: #### ROLANDA Stephenson ACBC #### Testing performed at [address] [place] [address] Neutrophils/100 WBC (Bld) 73.8 % Normal 37.0-75.0 [facility] Comment on above: Performed By: #### ROLANDA Stephenson ACBC #### Testing performed at [address] [place] [address] Erythrocyte distribution width (RBC) [Ratio] 15.2 % High 11.5-14.5 [facility] Comment on above: Performed By: #### M G, CMPF, ACBC #### Testing performed at [address] [address] Hematocrit (Bld) [Volume fraction] 34.0 % Low 36.0-48.0 [facility] Comment on above: Performed By: #### Dimitri Garcia CMPF, ACBC #### Testing performed at [address] [address] Hemoglobin (Bld) [Mass/Vol] 10.8 g/dL Low 12.0-16.0 [facility] Comment on above: Performed By: #### Dimitri Garcia CMPSourav, ACBC #### Testing performed at [address] [address] MCH (RBC) [Entitic mass] 24.1 pg Low 26.0-35.0 [facility] Comment on above: Performed By: #### ROLANDA Stephenson, ACBC #### Testing performed at [address] [address] MCHC (RBC) [Mass/Vol] 31.8 g/dL Normal 27.0-37.0 [facility] Comment on above: Performed By: #### ROLANDA Stephenson, ACBC #### Testing performed at [address] [address] MCV (RBC) [Entitic vol] 75.7 fL Low 80.0-100.0 [facility] Comment on above: Performed By: #### ROLANDA Stephenson, ACBC #### Testing performed at [address] [address] Platelet mean volume (Bld) [Entitic vol] 7.8 fL Normal 7.4-11.0 [facility] Comment on above: Performed By: #### Dimitri Garcia CMPF, ACBC #### Testing performed at [address] [address] Platelets (Bld) [#/Vol] 283 10*3/uL Normal 130-400 [facility] Comment on above: Performed By: #### Dimitri Garcia, CMPF, ACBC #### Testing performed at [address] [address] RBC (Bld) [#/Vol] 4.49 10*6/uL Normal 4.0-5.4 [facility] Comment on above: Performed By: #### Dimitri Garcia CMPF, ACBC #### Testing performed at [address] [address] WBC (Bld) [#/Vol] 9.9 10*3/uL Normal 3.6-11.0 [facility] Comment on above: Performed By: #### Dimitri Garcia CMPF, ACBC #### Testing performed at [address] [address] CHLAMYDIA/GCon 09-26-2022 CHLAMYDIA TRACH Not detected Normal NOT DETECTED [facility] Comment on above: Performed By: #### C TNG #### Testing performed at [address] [address] N.GONORRHOEAE Not detected Normal NOT DETECTED [facility] Comment on above: Result Comment: TEST ING PERFORMED BY PCR Performed By: #### C TNG #### Testing performed at [address] [address] CMP FASTINGon 09-26-2022 A:G RATIO 1.5 RATIO Normal [facility] Comment on above: Performed By: #### ROLANDA Stephenson, ACBC #### Testing performed at [address] [address] ALBUMIN 4.5 G/dl Normal 3.5-5.0 [facility] Comment on above: Performed By: #### Dimitri Garcia CMPF, ACBC #### Testing performed at [address] [address] ALP [Catalytic activity/Vol] 93 U/L Normal 38-126 [facility] Comment on above: Performed By: #### Dimitri Garcia CMPF, ACBC #### Testing performed at [address] [address] ALT [Catalytic activity/Vol] 26 U/L Normal <35 [facility] Comment on above: Performed By: #### Dimitri Garcia CMPF, ACBC #### Testing performed at [address] [address] AST [Catalytic activity/Vol] 28 U/L Normal 14-36 [facility] Comment on above: Performed By: #### ROLANDA Stephenson ACBC #### Testing performed at [address] [address] Bilirubin [Mass/Vol] 0.3 mg/dL Normal 0.2-1.3 [facility] Comment on above: Performed By: #### ROLANDA Stephenson ACBC #### Testing performed at [address] [address] Calcium [Mass/Vol] 9.0 mg/dL Normal 8.4-10.2 [facility] Comment on above: Performed By: #### ROLANDA Stephenson ACBC #### Testing performed at [address] [address] Chloride [Moles/Vol] 107 mmol/L Normal 98-107 [facility] Comment on above: Result Comment: Plebladimir perez note: Triglyceride levels of 600mg/dL or higher may positively bias chloride results by approximately 2.1 mmol Performed By: #### ROLANDA Stephenson ACBC #### Testing performed at [address] [address] CO2 [Moles/Vol] 22 mmol/L Normal 22-30 [facility] Comment on above: Performed By: #### ROLANDA Stephenson ACBC #### Testing performed at [address] [address] Creatinine [Mass/Vol] 0.54 mg/dL Low 0.70-1.20 [facility] Comment on above: Performed By: #### ROLANDA Stephenson ACBC #### Testing performed at [address] [address] GFR Information Unable to calculate GFR due to inappropriate age/gender/creatinine value. Normal [facility] Comment on above: Performed By: #### ROLANDA Stephenson ACBC #### Testing performed at [address] [address] Glucose [Mass/Vol] 105 mg/dL High 70-100 [facility] Comment on above: Result Comment: NORMAL <100 mg/dL PREDIABETES 101-126 mg/dL DIABETES 126 mg/dL or higher Performed By: #### M G, CMPF, ACBC #### Testing performed at [address] [address] Potassium [Moles/Vol] 3.4 mmol/L Low 3.5-5.1 [facility] Comment on above: Performed By: #### Dimitri Garcia CMPF, ACBC #### Testing performed at [address] [address] Protein [Mass/Vol] 7.5 g/dL Normal 6.3-8.2 [facility] Comment on above: Performed By: #### ROLANDA Stephenson, ACBC #### Testing performed at [address] [address] Sodium [Moles/Vol] 139 mmol/L Normal 137-145 [facility] Comment on above: Performed By: #### ROLANDA Stephenson, ACBC #### Testing performed at [address] [address] Urea nitrogen [Mass/Vol] 8 mg/dL Normal 7-20 [facility] Comment on above: Performed By: #### ROLANDA Stephenson, ACBC #### Testing performed at [address] [address] [address] ABDOMEN/PELVIS WITH CONTR Kyler 09-26-2022 CT ABDOMEN/PELVIS WITH CONTRAST EXAMINATION: CT ABDOMEN/PELVIS WITH CONTRAST, 09/25/2022 11:31 PM EDT HISTORY: Abdominal pain. COMPARISON: None. TECHNIQUE: CT scan of the abdomen and pelvis was performed with IV contrast. CT dose reduction technique was used, including Automated Exposure Control. FINDINGS: CT ABDOMEN: The lung bases are clear of consolidations and no effusions are identified. The heart size is within normal limits. The liver, spleen, gallbladder, pancreas, adrenal glands and both kidneys are normal. No retroperitoneal adenopathy. CT PELVIS: The bladder is moderately distended and without an intrinsic abnormality. The uterus and adnexal regions are unremarkable. No bowel wall thickening or dilated loops of bowel. The appendix is visualized and normal. The osseous structures appear intact. IMPRESSION: No acute intra-abdominal or pelvic finding. Normal [facility] LACTATE,BLOODon 09-26-2022 Lactate [Moles/Vol] 1.6 mmol/L Normal 0.7-2.0 [facility] Comment on above: Performed By: #### L ACTAC ####Testing performed at [address] [place] [address] MAGNESIUMon 09-26-2022 Magnesium [Mass/Vol] 1.9 mg/dL Normal 1.6-2.3 [facility] Comment on above: Performed By: #### M G, CMPF, ACBC ####Testing performed at [address] [place] [address] URINE HCG QUALon 09-26-2022 Beta HCG ( test) Ql (U) Negative Normal NEGATIVE [facility] Comment on above: Performed By: #### U MAC, UHCGT #### Testing performed at [address] [address] URINE MACROSCOPICon 09-27-19 Bilirubin Ql (U) Negative Normal NEGATIVE [facility] Comment on above: Performed By: #### U MAC, UHCGT #### Testing performed at [address] [address] Clarity (U) CLEAR Normal CLEAR [facility] Comment on above: Performed By: #### U MAC, UHCGT #### Testing performed at [address] [address] Color (U) YELLOW Normal YELLOW [facility] Comment on above: Performed By: #### U MAC, UHCGT #### Testing performed at [address] [address] Glucose Ql (U) Negative Normal NEGATIVE [facility] Comment on above: Performed By: #### U MAC, UHCGT #### Testing performed at [address] [address] pH (U) 7.0 [pH] Normal 5.0-7.0 [facility] Comment on above: Performed By: #### U MAC, UHCGT #### Testing performed at [address] [place] [address] URINE HEMOGLOBIN Negative Normal NEGATIVE [facility] Comment on above: Performed By: #### U MAC, UHCGT #### Testing performed at [address] [address] URINE KETONE Negative Normal NEGATIVE [facility] Comment on above: Performed By: #### U MAC, UHCGT #### Testing performed at [address]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 End: 07-18-2023 History of Social function [facility] Start: 10-13-2022 End: 07-18-2023 Tobacco use panel [facility] National Score (1-10 0), lower number is lower risk 69 [facility] Mental Status Date Assessment Result Facility 12-18-2024 Cognitive function Level Of Consciousness Awake [facility] Work Phone: 02-02-2022 Cognitive function Level Of Cons ciousness Awake;Alert;Appropriate;Follow s Commands [facility] Work Phone: 08-30-2021 Cognitive function Level Of Cons ciousness Awake;Alert;Appropriate;Follow s Commands [facility] Work Phone: 07-30-2021 Cognitive function Level Of Cons ciousness Awake;Alert;Appropriate;Follow s Commands [facility] Work Phone: Clinical Notes 03-08-2021 to 12-18-2024 Discharge InstructionsAttachmentsJu Townsend RN - 07/18/2023 5:22 PM Dieudonne Townsend RN - 07/18/2023 5:22 PM Natalee Frazier MD - 07/18/2023 4:19 PM EDTInstructionsAttachments Note Date & Type Note Facility 12-18-2024 Discharge summary [facility] 07-18-2023 Hospital Discharge instructions Berry Frazier MD - 07/18/2023 6:56 PM EDT Your blood type is A POSITIVE. Keep your appointment with the Ob at [facility] on August 22. Call them on Thursday and let them know you were in the emergency department. They may wish to see you before then. Return to the ER immediately if you have recurrence of pain, vaginal bleeding, or feel worse in any way. The following attachments cannot be sent through Care Everywhere.Pelvic Pain ([place])documented in this encounter [facility] 07-18-2023 Emergency department Note Patient changing into gown at this time. [facility] 07-18-2023 Emergency department Note Patient changing into gown at this time. Emergency Room Note [facility] EMERGENCY DEPARTMENT Service Date:.07/18/23 PCP: No primary care provider on file. Chief Complaint: Chief Complaint Patient presents with Abdominal Pain Pt to ED with c/o lower right abd pain that started last night. Describes pain as cramping. Rates pain 3/10 @ this time. Pt also just found out she was , and is unsure how far along she is. Denies bleeding. YUSUF Denise is a 18 y.o. female presents to the ED today due to lower abdominal pain. Patient tells me she has had this pain off and on. Started about 6 months ago. However she tells me that she found out she was yesterday with a positive home test. The pain started again this morning which she describes as a 3/10 crampy abdominal pain which is in the right lower quadrant/pelvic area. She states she has had it on both sides in the past. She has no vaginal bleeding or discharge. She did have an implantable control in her left arm. She took this out on her own in May. States he has been trying to get . She took 2 tests at home yesterday which were positive. She tells me the pain feels like it did in the past when she had the cramps but because she has a positive test she was worried and thought she should come in and be checked. She does not know her blood type. If she is it would be her 1st time. Review of Systems: Review of Systems She has no fever or chills. She has no upper respiratory complaints. She has no vomiting. She has had little nausea intermittently. She denies any diarrhea. She has no dysuria, hematuria, vaginal bleeding, or other genitourinary complaints. She denies any recent unexplained weight loss. Denies any rash. She has no swelling or edema of the extremities. No lightheadedness or syncope. No chest pain or shortness of breath. She has no recent falls or trauma. Past Medical History: Past Medical History: Diagnosis Date Migraine Past Surgical History: No past surgical history on file. Allergies: No Known Allergies Medications: Current Discharge Medication List STOP taking these medications traMADol 50 MG tablet Comments: Reason for Stopping: Family History: History reviewed. No pertinent family history. Social History: Social History Socioeconomic History Marital status: Single Spouse name: Not on file Number of children: Not on file Years of education: Not on file Highest education level: Not on file Occupational History Not on file Tobacco Use Smoking status: Never Smokeless tobacco: Never Vaping Use Vaping status: Never Used Substance and Sexual Activity Alcohol use: Not Currently Drug use: Never Sexual activity: Not on file Other Topics Concern Not on file Social History Narrative Not on file Social Determinants of Health Financial Resource Strain: Not on file Food Insecurity: Not on file Transportation Needs: Not on file Physical Activity: Not on file Stress: Not on file Social Connections: Not on file Intimate Partner Violence: Not on file Housing Stability: Not on file Physical Exam: Physical Exam 1. She also has this is a smiling and ambulatory 18-year-old female who is speaking in full sentences. Her vital signs are stable. Sclerae and conjunctiva clear moist. Mouth has pink moist mucosa. She speaks in a normal voice and handle secretions without difficulty. Her neck is supple and trachea is midline. She is good range of motion neck without difficulty or discomfort. Her lungs are clear to auscultation bilaterally with good air movement. Inspiratory and expiratory phases appear symmetrical. Heart is regular. No appreciable murmur. Abdomen is soft and nondistended. She has some mild diffuse tenderness across the lower abdomen in the suprapubic area. She does not localize tenderness of the right lower quadrant. She does not localize tenderness to left lower quadrant. She has no tenderness in the upper abdomen. Renteria's sign negative. Good femoral pulses. No obvious hernia. No flank tenderness. No CVA tenderness. No tenderness over the back. Skin is warm and dry and well-perfused. Capillary refill is brisk distally. Good peripheral pulses in all extremities. No posterior calf tenderness. No peripheral edema. Vital Signs During ED Visit Patient Vitals for the past 24 hrs: BP Temp Temp src Pulse Resp SpO2 Height Weight 07/18/23 1803 128/70 -- -- 91 16 97 % -- -- 07/18/23 1613 126/77 99.2 F (37.3 C) Oral 107 18 98 % 1.727 m (5' 8) 97.1 kg (214 lb) Orders/Results: Orders Placed This Encounter US OB TRANSVAGINAL/CERVICAL LENGTH BETA HCG, QUANT, BLOOD ABO/RH(D) TYPING URINALYSIS, MACRO HCG QUALITATIVE, URINE Results for orders placed or performed during the hospital encounter of 07/18/23 BETA HCG, QUANT, BLOOD Result Value Ref Range BETA HCG, QUANT, 38.19 MIU/ML ABO/RH(D) TYPING Result Value Ref Range ABO/RH(D) A POSITIVE URINALYSIS, MACRO Result Value Ref Range COLOR, URINE YELLOW YELLOW APPEARANCE, URINE CLEAR CLEAR Specific [place], Urine >1.030 (H) 1.010 - 1.025 PH URINE 6.0 5.0 - 7.0 Urine Protein NEGATIVE NEGATIVE mg/dl GLUCOSE, URINE NEGATIVE NEGATIVE mg/dl KETONES, URINE TRACE (A) NEGATIVE mg/dl BILIRUBIN, URINE NEGATIVE NEGATIVE BLOOD, URINE DIPSTICK NEGATIVE NEGATIVE NITRITES, URINE NEGATIVE NEGATIVE UROBILINOGEN, URINE 0.2 0.2 - 1.0 E.U./dL LEUKOCYTE ESTERASE, URINE NEGATIVE NEGATIVE HCG QUALITATIVE, URINE Result Value Ref Range HCG, QUALITATIVE, URINE POSITIVE (A) NEGATIVE Radiographic Imaging US OB TRANSVAGINAL/CERVICAL LENGTH Final Result IMPRESSION: No evidence of intrauterine . No findings suspicious for ectopic . Small hypoechoic area right ovary could be a small cyst/ follicle or developing corpus luteum nonspecific. 1.2 cm. Recommend correlation with quantitative ECG level and follow-up ultrasound as indicated. Differential diagnosis includes early IUP not yet visualized, ectopic or recent spontaneous miscarriage. Procedures: Procedures Moderate Sedation Procedure: No The urine test did come back positive. I spoke at length with the patient. At this time a serum quantitative HCG has been ordered along with a type and Rh. Pelvic ultrasound and rule out ectopic ordered. Patient voiced understanding and agreement with this plan. ED Summary/MDM Patient's blood type is A positive. Her quantitative HCG is only 38.19. No evidence of on the ultrasound. On reexam patient denies any pain. I can not palpate superficially and deeply throughout the entire abdomen and it is nontender. I did explain the patient's results to her. This represents a very early . It does not rule out ectopic but at this time the patient has no pain and no vaginal bleeding. I do think that she is medically stable for discharge and she is comfortable with this. She has follow-up scheduled with the [facility] OBGYN on August 22. I told her to make sure she keeps this appointment but I also told her Thursday she is to call them and let him know what happened to see if they want to see her sooner. She is to return to the emergency room immediately if she has recurrence of pain, vaginal bleeding, or feels worse in any way. She did voice understanding and agreement with treatment and instructions. She had no further questions at this time. She is discharged ambulatory and in good condition. Clinical Impression: 1. Less than 8 weeks gestation of 2. Pelvic pain during No follow-ups on file. Current Discharge Medication List Current Discharge Medication List STOP taking these medications traMADol 50 MG tablet Comments: Reason for Stopping: An After Visit Summary was printed and given to the patient with above information. . Berry Frazier MD 07/18/23 1900 documented in this encounter [facility] 07-18-2023 Physician Emergency department Note Emergency Room Note [facility] EMERGENCY DEPARTMENT Service Date:.07/18/23 PCP: No primary care provider on file. Chief Complaint: Chief Complaint Patient presents with Abdominal Pain Pt to ED with c/o lower right abd pain that started last night. Describes pain as cramping. Rates pain 3/10 @ this time. Pt also just found out she was , and is unsure how far along she is. Denies bleeding. HPI Onofre Denise is a 18 y.o. female presents to the ED today due to lower abdominal pain. Patient tells me she has had this pain off and on. Started about 6 months ago. However she tells me that she found out she was yesterday with a positive home test. The pain started again this morning which she describes as a 3/10 crampy abdominal pain which is in the right lower quadrant/pelvic area. She states she has had it on both sides in the past. She has no vaginal bleeding or discharge. She did have an implantable control in her left arm. She took this out on her own in May. States he has been trying to get . She took 2 tests at home yesterday which were positive. She tells me the pain feels like it did in the past when she had the cramps but because she has a positive test she was worried and thought she should come in and be checked. She does not know her blood type. If she is it would be her 1st time. Review of Systems: Review of Systems She has no fever or chills. She has no upper respiratory complaints. She has no vomiting. She has had little nausea intermittently. She denies any diarrhea. She has no dysuria, hematuria, vaginal bleeding, or other genitourinary complaints. She denies any recent unexplained weight loss. Denies any rash. She has no swelling or edema of the extremities. No lightheadedness or syncope. No chest pain or shortness of breath. She has no recent falls or trauma. Past Medical History: Past Medical History: Diagnosis Date Migraine Past Surgical History: No past surgical history on file. Allergies: No Known Allergies Medications: Current Discharge Medication List STOP taking these medications traMADol 50 MG tablet Comments: Reason for Stopping: Family History: History reviewed. No pertinent family history. Social History: Social History Socioeconomic History Marital status: Single Spouse name: Not on file Number of children: Not on file Years of education: Not on file Highest education level: Not on file Occupational History Not on file Tobacco Use Smoking status: Never Smokeless tobacco: Never Vaping Use Vaping status: Never Used Substance and Sexual Activity Alcohol use: Not Currently Drug use: Never Sexual activity: Not on file Other Topics Concern Not on file Social History Narrative Not on file Social Determinants of Health Financial Resource Strain: Not on file Food Insecurity: Not on file Transportation Needs: Not on file Physical Activity: Not on file Stress: Not on file Social Connections: Not on file Intimate Partner Violence: Not on file Housing Stability: Not on file Physical Exam: Physical Exam 1. She also has this is a smiling and ambulatory 18-year-old female who is speaking in full sentences. Her vital signs are stable. Sclerae and conjunctiva clear moist. Mouth has pink moist mucosa. She speaks in a normal voice and handle secretions without difficulty. Her neck is supple and trachea is midline. She is good range of motion neck without difficulty or discomfort. Her lungs are clear to auscultation bilaterally with good air movement. Inspiratory and expiratory phases appear symmetrical. Heart is regular. No appreciable murmur. Abdomen is soft and nondistended. She has some mild diffuse tenderness across the lower abdomen in the suprapubic area. She does not localize tenderness of the right lower quadrant. She does not localize tenderness to left lower quadrant. She has no tenderness in the upper abdomen. Renteria's sign negative. Good femoral pulses. No obvious hernia. No flank tenderness. No CVA tenderness. No tenderness over the back. Skin is warm and dry and well-perfused. Capillary refill is brisk distally. Good peripheral pulses in all extremities. No posterior calf tenderness. No peripheral edema. Vital Signs During ED Visit Patient Vitals for the past 24 hrs: BP Temp Temp src Pulse Resp SpO2 Height Weight 07/18/23 1803 128/70 -- -- 91 16 97 % -- -- 07/18/23 1613 126/77 99.2 F (37.3 C) Oral 107 18 98 % 1.727 m (5' 8) 97.1 kg (214 lb) Orders/Results: Orders Placed This Encounter US OB TRANSVAGINAL/CERVICAL LENGTH BETA HCG, QUANT, BLOOD ABO/RH(D) TYPING URINALYSIS, MACRO HCG QUALITATIVE, URINE Results for orders placed or performed during the hospital encounter of 07/18/23 BETA HCG, QUANT, BLOOD Result Value Ref Range BETA HCG, QUANT, 38.19 MIU/ML ABO/RH(D) TYPING Result Value Ref Range ABO/RH(D) A POSITIVE URINALYSIS, MACRO Result Value Ref Range COLOR, URINE YELLOW YELLOW APPEARANCE, URINE CLEAR CLEAR Specific [place], Urine >1.030 (H) 1.010 - 1.025 PH URINE 6.0 5.0 - 7.0 Urine Protein NEGATIVE NEGATIVE mg/dl GLUCOSE, URINE NEGATIVE NEGATIVE mg/dl KETONES, URINE TRACE (A) NEGATIVE mg/dl BILIRUBIN, URINE NEGATIVE NEGATIVE BLOOD, URINE DIPSTICK NEGATIVE NEGATIVE NITRITES, URINE NEGATIVE NEGATIVE UROBILINOGEN, URINE 0.2 0.2 - 1.0 E.U./dL LEUKOCYTE ESTERASE, URINE NEGATIVE NEGATIVE HCG QUALITATIVE, URINE Result Value Ref Range HCG, QUALITATIVE, URINE POSITIVE (A) NEGATIVE Radiographic Imaging US OB TRANSVAGINAL/CERVICAL LENGTH Final Result IMPRESSION: No evidence of intrauterine . No findings suspicious for ectopic . Small hypoechoic area right ovary could be a small cyst/ follicle or developing corpus luteum nonspecific. 1.2 cm. Recommend correlation with quantitative ECG level and follow-up ultrasound as indicated. Differential diagnosis includes early IUP not yet visualized, ectopic or recent spontaneous miscarriage. Procedures: Procedures Moderate Sedation Procedure: No The urine test did come back positive. I spoke at length with the patient. At this time a serum quantitative HCG has been ordered along with a type and Rh. Pelvic ultrasound and rule out ectopic ordered. Patient voiced understanding and agreement with this plan. ED Summary/MDM Patient's blood type is A positive. Her quantitative HCG is only 38.19. No evidence of on the ultrasound. On reexam patient denies any pain. I can not palpate superficially and deeply throughout the entire abdomen and it is nontender. I did explain the patient's results to her. This represents a very early . It does not rule out ectopic but at this time the patient has no pain and no vaginal bleeding. I do think that she is medically stable for discharge and she is comfortable with this. She has follow-up scheduled with the [facility] OBGYN on August 22. I told her to make sure she keeps this appointment but I also told her Thursday she is to call them and let him know what happened to see if they want to see her sooner. She is to return to the emergency room immediately if she has recurrence of pain, vaginal bleeding, or feels worse in any way. She did voice understanding and agreement with treatment and instructions. She had no further questions at this time. She is discharged ambulatory and in good condition. Clinical Impression: 1. Less than 8 weeks gestation of 2. Pelvic pain during No follow-ups on file. Current Discharge Medication List Current Discharge Medication List STOP taking these medications traMADol 50 MG tablet Comments: Reason for Stopping: An After Visit Summary was printed and given to the patient with above information. . Berry Frazier MD 07/18/23 1900 [facility] 06-01-2023 Note HNO ID: [id number] Author: JADA FRENCH APRN.WAYNE Service: ? Author Type: Nurse Practitioner Type: Progress Notes Filed: 06/01/2023 16:53 Note Text: Field Placement Director offered: Patient declines. Onofre is a 18 year old who presents for Nexplanon removal for desires conception. UNIVERSAL PROTOCOL / SAFETY CHECKLIST Procedure to be Performed: Nexplanon removal Sign In: A Moment of CARE was completed. Personnel directly involved with the procedure wore the appropriate PPE (Personal Protective Equipment). Patient/Surrogate Stated/Verified: PATIENT VERIFIED(optional for EMERGENT procedures): Patient name, Date of , Relevant allergies, and The intended procedure Time Out Communication: Intended patient and procedure match the source documents. Consent documented and matches the intended procedure. Sign Out: SIGN OUT (optional for EMERGENT procedures): No specimen collected. All instruments, equipment, possible retained foreign bodies accounted for. Post-procedure follow-up management communicated and Plan of Care Visit completed when applicable. Nesha Jane LPN TECHNIQUE: Patient placed in supine position with left arm bent at the elbow and placed over the head. Skin cleansed with betadine. 2mL of 1% lidocaine with epi injected subQ along insertion site. Scalpel used to made a 5mm stab incision superficially at distal end of Nexplanon. Device removed under sterile technique with a small hemostat. Sterile pressure dressing applied. AANDP: 18 year old here for Nexplanon removal Nexplanon removed intact without difficulty. The patient was instructed to remove the dressing after 24 hours. Jada French APRN.REFERRAL MANAGER [facility] 06-01-2023 History of Present illness Narrative Field Placement Director offered: Patient declines. Onofre is a 18 year old who presents for Nexplanon removal for desires conception. UNIVERSAL PROTOCOL / SAFETY CHECKLIST Procedure to be Performed: Nexplanon removal Sign In: A Moment of CARE was completed. Personnel directly involved with the procedure wore the appropriate PPE (Personal Protective Equipment). Patient/Surrogate Stated/Verified: PATIENT VERIFIED(optional for EMERGENT procedures): Patient name, Date of , Relevant allergies, and The intended procedure Time Out Communication: Intended patient and procedure match the source documents. Consent documented and matches the intended procedure. Sign Out: SIGN OUT (optional for EMERGENT procedures): No specimen collected. All instruments, equipment, possible retained foreign bodies accounted for. Post-procedure follow-up management communicated and Plan of Care Visit completed when applicable. Nesha Jane LPN TECHNIQUE: Patient placed in supine position with left arm bent at the elbow and placed over the head. Skin cleansed with betadine. 2mL of 1% lidocaine with epi injected subQ along insertion site. Scalpel used to made a 5mm stab incision superficially at distal end of Nexplanon. Device removed under sterile technique with a small hemostat. Sterile pressure dressing applied. A&P: 18 year old here for Nexplanon removal Nexplanon removed intact without difficulty. The patient was instructed to remove the dressing after 24 hours. Jada French APRN.REFERRAL MANAGER documented in this encounter [facility] 04-29-2023 Miscellaneous Notes Order linked to upcoming appointment. Elena Antunez RN Patient wants Nexplanon removed and wants no other type of control for now. Appointment scheduled. Please file order to attach to appointment. Lalitha Connolly RN Pt would like to have her Nexplanon IUD removed. documented in this encounter [facility] 04-15-2023 Miscellaneous Notes Patient notified and voiced understanding of below information and instructions. Patient will go to ER. Elena Antunez RN RLQ worse with any movement - she really should be evaluated in ED for appendicitis. They will do a test before any imaging. Tracee Mcdaniel APRN.WAYNE Patient calling c/o RLQ pain that started today. Has Nexplanon in place, but had faint positive UPT about 2 weeks ago. When pain started today she took another UPT and it was negative. Rating pain 6/10 on pain scale at it's worse. Gets worse with sharp/shooting pain when up and moving and is more of a dull ache when sitting/lying still. Unsure of her LMP because of Nexplanon she doesn't have menses every month. She states it has been awhile though. No other symptoms as of now. Please advise. Lalitha Connolly RN documented in this encounter [facility] 10-13-2022 Note HNO ID: [id number] Author: Aminata Wagoner MD Service: ? Author Type: Physician Type: Progress Notes Filed: 10/13/2022 2:10 PM Note Text: Field Placement Director offered: Patient declines. Onofre Denise is a 17 year old female who presents for follow up from ER visit from [facility] a few weeks ago for pelvic pain. Pt reports pain was so bad she had nausea and vomiting associated with it. She states at that time she was starting a new workout regimen. She wonders if her Nexplanon the source of her pain. Patient reports she has menstrual cycle every 3 to 4 months. Patient states she has no pain today. She states the last time she had pain was approximately a week ago when she was carrying a heavy laundry basket. Pt reports no dysuria but states does have diarrhea at times. OB History T0 L0 SAB0 IAB0 Ectopic0 Multiple0 Live Births0 Lab Coordinator History LMP: 09/17/2020 (Exact Date), Having periods Age at Menarche: Age at First : Age at Menopause: Lab Coordinator History Comments: Sexual Activity: Never; No partner data on record Contraception: No contraception data on record No past medical history on file. PAST SURGICAL HISTORY Procedure Laterality Date EXTRACTION ERUPTED TOOTH/EXR NEXPLANON INSERTION Left No family history on file. Social History Tobacco Use Smoking status: Never Smokeless tobacco: Never Vaping Use Vaping Use: Never used Substance Use Topics Alcohol use: Never Drug use: Never Current Outpatient Medications Medication Sig etonogestrel (NEXPLANON) subdermal implant 68 mg 1 Each by SUBDERMAL route as directed. No current facility-administered medications for this visit. Allergies As of Date: 10/13/2022 (No Known Allergies) Fully Assessed 07/23/2022 REVIEW OF SYSTEMS Abdomen: no pain Bladder: no dysuria.. Expanded ROS: GENERAL: Negative for fever Allergies and current medication updated:Yes EXAM: BP 110/70 Wt 188 lb (85.3kg) LMP 10/08/2022 GENERAL: pleasant, female in no apparent distress HEENT: Normocephalic, atraumatic, mucus membranes moist, and no lesions NECK: full range of motion DERMATOLOGY: Normal, without lesions, non-icteric, and non-hirsute ABDOMEN: soft, non-tender, no masses, rebound Absent, and guarding Absent. Deep palpation of R and L psoas muscle reproduces pain. NEURO: alert and oriented x3,exam grossly non-focal EXTREMITIES: normal ASSESSMENT AND PLAN: Encounter Diagnosis ICD-10-CM 1. Right lower quadrant abdominal pain R10.31 2. Psoas muscle strain, right, initial encounter S76.011A 3. Discussed with the patient that I feel her pain is likely musculoskeletal in nature and likely originating from the psoas muscle. Upon deep palpation she has pain on the right and left psoas muscles. We discussed how to stretch the psoas muscles. Also discussed proper warm up and cool down after exercising. Seems that her pain is exacerbated with exercise and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
--- NOTE | 2025-01-26 08:13 | EDS_ITS ---
HPI History of Present Illness Chief Complaint: Numb/Ting Informant: patient Narrative Narrative: The patient is a 20-year-old female with past medical history of atypical migraine. She states she has had these type of migraines since the sixth grade. She states she gets them frequently and when she does she has numbness and tingling mainly to the right side of her body and can also have change in vision. She states she got a migraine yesterday and it came on gradually increased over the course of hours. She states that she had associated symptoms of paresthesias and vision change. She reports that she took yphc-hvd-[id number] Excedrin migraine medicine which has normally helped her in the past. She states that it did help reduce the headache but it has not completely resolved and symptoms of paresthesias and vision changes are still present. She states she was talking with her sister who informed her that typically if she comes to the ER due to persistent symptoms and receives a migraine shot that she will feel better and therefore presents at this time. [facility] Medical History Migraine Clavicle fracture Home Medications ?Medication ?Instructions ?Recorded ?Last Taken ?Type zabbaza-ziktclqrnugoq-vjdvzrcf 250 2 tab PO Q6H PRN pa in #90 tabs 01/26/25 Unknown Rx mg-250 mg-65 mg tablet (Excedrin Migraine) Allergy/AdvReac Type Severity Reaction Status Date / Time No Known Allergies Allergy Verified 01/26/25 06:21 Social History household members: significant other Smoking Status: Never smoker substance use type: does not use ROS ROS ED Constitutional Constitutional ED: Denies chills or fever(s) Eyes Eyes: Reports change in vision ENT ENT ED: Denies sore throat Cardiovascular Cardiovascular: Denies chest pain, palpitations or racing heartbeat Respiratory/Chest Respiratory/Chest: Denies cough or dyspnea Gastrointestinal Gastrointestinal: Reports nausea; Denies abdominal pain, diarrhea or vomiting Genitourinary Genitourinary ED: Denies dysuria Musculoskeletal Musculoskeletal: Denies myalgias Integumentary Denies rash Neurologic Neurologic: Reports headache(s) and paresthesias Hematologic/Lymphatic Hematologic/Lymphatic: Denies easy bleeding or easy bruising EXAM Physical Exam Const Vital Signs: 01/26/25 06:21 Temperature 97.9 F Temperature Source Oral Pulse Rate 69 Respiratory Rate 16 Blood Pressure 117/68 Blood Pressure Mean 84 Pulse Ox 100 Oxygen Delivery Method Room Air Positive well nourished and well developed General Appearance ED: well developed; Negative for pallor HEENT HEENT Narrative: Normocephalic atraumatic Eyes PERRL and EOMs intact bilaterally General Eye ED: Negative for pale conjunctiva or scleral icterus Neck supple Neck Narrative: No nuchal rigidity or meningeal signs Resp normal respiratory effort and clear to auscultation bilaterally Cardio regular rate and regular rhythm Extremity normal to inspection Neuro oriented x3 and CN's II-XII intact bilaterally Neuro Narrative: GCS of 15 Cranial nerves II through XII are grossly intact Patient does receive an NIH stroke scale score of 1 secondary to paresthesias No truncal ataxia dysmetria or pronator drift Sensorium / Orientation: alert Psych mental status grossly normal Skin no rashes or lesions noted and no wounds General Skin Exam: Negative for jaundice or pallor MDM MDM MDM Narrative Medical decision making narrative: Patient arrived to the ER with stable vitals. She reported a longstanding history of headache and reports this 1 came on gradually and increased over the course of hours and presents similarly to her previous migraines. Without report or signs of trauma and as vitals are stable and there is no findings of overt infection on exam I do not feel the need for imaging or laboratory study. She was given IV fluids as well as Toradol Benadryl and Reglan. On reevaluation she reports complete resolution of symptoms and vitals remained stable. Patient now has an NIH stroke scale score of 0 as there has been resolution of the paresthesias. Therefore at this time as physical exam and history do not suggest trauma such as skull fracture or traumatic subarachnoid subdural hemorrhage and physical exam does not suggest meningitis or secondary infection such as sinusitis and now her symptoms have resolved and vitals are stable there is no need for further intervention and she is otherwise safe for discharge History & Record Review Discussion w/independent historian: Patient Discharge Plan Triage Chief Complaint: Numb/Ting ED Provider: Mamadou Malcolm Dx/Rx/DC Orders Clinical Impression: Atypical migraine, Paresthesias Instructions: Migraines and Cluster Headaches, ED Paresthesia Prescriptions: New jgyugfe-hmnyybhijrgtv-bbdlewko [Excedrin Migraine] 250-250-65 mg tablet 2 tab PO Q6H PRN (Reason: pain) Qty: 90 1RF Stand Alone Forms: ED Work / School Excuse Primary Care Provider: Jean Horne Referrals: Jean Horne, DO [Primary Care Provider, Internal Medicine] Activity Restrictions/Additional Instructions: Please return to the ER should you have any further concerns or worsening of symptoms Print Language: Guatemalan Disposition Disposition: Home, Self Care Discharge Date/Time: 01/26/25 08:54
[2025-01-26 08:20] VITALS: BP 109/80; PULSE 81; RESP 18; O2SAT 99
[2025-01-26 08:51] VITALS: BP 109/80; PULSE 81; RESP 18; TEMP 36.6; O2SAT 99
== END 2025-01-26 08:54 | disposition home or self-care (01) ==
PROVIDERS: Emergency Provider Emergency Medicine; PCP Family Medicine; Visit Provider Emergency Medicine
DX: R20.2 Paresthesia of skin (principal); G43.909 Migraine, unspecified, not intractable, without status migrainosus
CPT/HCPCS: 96361; 96374; 96375; 99282; A4216

== ENCOUNTER 2025-02-24 23:22 | Emergency (ER) | payer MEDICAID, SELFPAY ==
[2025-02-24 23:23] VITALS: BP 136/95; PULSE 101; RESP 20; TEMP 36.5; O2SAT 100; BMI 30.9
[2025-02-24] MEDS: Ketorolac 30 MG/ML Syringe IM (23:32)
--- OUTSIDE RECORDS SUMMARY | 2025-02-25 00:18 | XMS RPT_ITS | CCD ---
Author Organization [facility] Care Team Providers Care Sound Mixer Name Role Phone Unavailable Primary Care Provider [...] Physician Dr. Mamadou Malcolm DO Attending Physician [phone] Dr. Mamadou Malcolm DO Emergency Department Physic comfort Medications Current Medications Medication Drug Class(es) Dates Sig (Normalized) Sig (Original) azelastine hydrochloride 0.137 mg/actuat metered dose nasal spray (1 source) Histamine-1 Receptor Antagonist Start: 12-18-2024 codeine phosphate 2 mg/ml / guaiFENesin 20 mg/ml oral solution (1 source) Opioid Agonist Start: 12-18-2024 take 1 mL by mouth four times daily as needed [place] (Nk) (2 sources) Start: 08-30-2021 [place] (Nk) Active August 29, 2021 11:00pm Start: 08-30-2021 [place] (Nk) A ctive August 30, 2021 12:00am [...] Department Summary on 12-18-2024 Emergency Department Summary [facility] Medical Records Department [address] [place] [address] Emergency Department Summary 12/18/24 MR#: [id number] Acct: [id number] Name: ONOFRE DENISE Rep #: [id number] : 2005 19 From: Mamadou Malcolm DO [...] due t (more content not included)... Normal [place] ED Prov Noteon 10-12-2024 ED Prov Note ED PROVIDER NOTE [facility] EMERGENCY DEPARTMENT NAME: Onofre Denise AGE: 19 y.o. : 2005 VISIT DATE: 10/12/2024 CSN: [id number] PCP: Hyacinth Horne DO Chief Complaint Patient [...] As needed, If symptoms worsen [address] [facility] [address] Contact information for after-discharge care Follow-up [...] BY BASIL CHOI, ON 10/12/2024 10:07:[address] [facility] POC STREP A - MOLECULAR RALS on 10-12-2024 POC STREP A SCREEN Negative Normal Negative [facility] ED Prov Noteon 10-07-2023 ED Prov Note [facility] EMERGENCY DEPARTMENT ATTENDING NOTE: NAME: Onofre Denise CSN: [id number] 18 y.o. PCP: Hyacinth Horne DO History: [...] relevant). I (more content not included)... Normal [facility] BASIC METABOLIC PANELon 05- Anion gap [Moles/Vol] 15 mmol/L Normal 10-20 [facility] Comment on above: Order Comment: [facility] has implemented the eGFR calculation approach that does not have a coefficient for race that conforms to the NKF-ASN Task Force Recommendations. Performed By: #### 4 [id number] #### LAB [address] [address] Mauricio Doll M.D. [id number] Calcium [Mass/Vol] 9.1 mg/dL Normal 8.4-10.2 [facility] Comment on above: Order Comment: [facility] has implemented the eGFR calculation approach that does not have a coefficient for race that conforms to the NKF-ASN Task Force Recommendations. Performed By: #### 4 6124 #### LAB [address] [address] Mauricio Doll M.D. [id number] Chloride [Moles/Vol] 106 mmol/L Normal 98-108 [facility] Comment on above: Order Comment: [facility] has implemented the eGFR calculation approach that does not have a coefficient for race that conforms to the NKF-ASN Task Force Recommendations. Performed By: #### 4 6124 #### LAB [address] [address] Mauricio Doll M.D. [id number] Creatinine [Mass/Vol] 0.53 mg/dL Normal 0.40-1.10 [facility] Comment on above: Order Comment: [facility] has implemented the eGFR calculation approach that does not have a coefficient for race that conforms to the NKF-ASN Task Force Recommendations. Performed By: #### 4 6124 #### LAB [address] [address] Mauricio Doll M.D. [id number] EGFR 136 mL/min/1.73 m2 Normal >=60 [facility] Comment on above: Order Comment: [facility] has implemented the eGFR calculation approach that does not have a coefficient for race that conforms to the NKF-ASN Task Force Recommendations. Result Comment: Unique mated GFR was calculated using the 2020 CKD-EPI creatinine equation. Performed By: #### 4 6124 #### LAB [address] [address] Mauricio Doll M.D. [id number] Glucose [Mass/Vol] 95 mg/dL Normal 65-99 [facility] Comment on above: Order Comment: [facility] has implemented the eGFR calculation approach that does not have a coefficient for race that conforms to the NKF-ASN Task Force Recommendations. Performed By: #### 4 6124 #### [facility] LAB [address] [address] Mauricio Doll M.D. [id number] HCO3 (Bld) [Moles/Vol] 23 mmol/L Normal 21-32 [facility] Comment on above: Order Comment: [facility] has implemented the eGFR calculation approach that does not have a coefficient for race that conforms to the NKF-ASN Task Force Recommendations. Performed By: #### 4 6124 #### LAB [address] [address] Mauricio Doll M.D. [id number] Potassium [Moles/Vol] 3.7 mmol/L Normal 3.5-5.1 [facility] Comment on above: Order Comment: [facility] has implemented the eGFR calculation approach that does not have a coefficient for race that conforms to the NKF-ASN Task Force Recommendations. Performed By: #### 4 6146 #### LAB [address] [address] Mauricio Doll M.D. [id number] Sodium [Moles/Vol] 140 mmol/L Normal 135-145 [facility] Comment on above: Order Comment: [facility] has implemented the eGFR calculation approach that does not have a coefficient for race that conforms to the NKF-ASN Task Force Recommendations. Performed By: #### 4 6150 #### [facility] LAB [address] [address] Mauricio Doll M.D. [id number] Urea nitrogen [Mass/Vol] 6 mg/dL Low 8-25 [facility] Comment on above: Order Comment: [facility] has implemented the eGFR calculation approach that does not have a coefficient for race that conforms to the NKF-ASN Task Force Recommendations. Performed By: #### 4 6124 #### LAB [address] [address] Mauricio Doll M.D. [id number] Urea nitrogen/Creatinine [Mass ratio] 11.3 mg/mg Normal 10.0-20.0 [facility] Comment on above: Order Comment: [facility] has implemented the eGFR calculation approach that does not have a coefficient for race that conforms to the NKF-ASN Task Force Recommendations. Performed By: #### 4 6124 #### LAB [address] [address] Mauricio Doll M.D. [id number] CBC WITH AUTO DIFFERENTIALon 07-22-2023 AUTO NRBC 0.0 % [facility] Comment on above: Performed By: #### L [id number] #### LAB [address] [address] Mauricio Doll M.D. [id number] AUTO NRBC ABS COUNT 0.00 K/mcL Normal 0.00-0.00 [facility] Comment on above: Performed By: #### L [id number] #### LAB [address] [address] Mauricio Doll M.D. [id number] BASOPHILS ABSOLUTE COUNT 0.02 K/mcL Normal 0.00-0.30 [facility] Comment on above: Performed By: #### L [id number] #### LAB [address] [place] [address] Mauricio Doll M.D. [id number] Basophils/100 WBC (Bld) 0.2 % Normal [facility] Comment on above: Performed By: #### L [id number] #### LAB [address] [address] Mauricio Doll M.D. [id number] Eosinophils (Bld) [#/Vol] 0.13 10*3/uL Normal 0.00-0.50 [facility] Comment on above: Performed By: #### L [id number] #### LAB [address] [place] [address] Mauricio Doll M.D. [id number] Eosinophils/100 WBC (Bld) 1.5 % Normal [facility] Comment on above: Performed By: #### L [id number] #### LAB [address] [address] Mauricio Doll M.D. [id number] Erythrocyte distribution width (RBC) [Ratio] 13.8 % Normal 11.6-14.8 [facility] Comment on above: Performed By: #### L [id number] #### LAB [address] [address] Mauricio Doll M.D. [id number] Hematocrit (Bld) [Volume fraction] 36.5 % Normal 36.0-46.0 [facility] Comment on above: Performed By: #### L [id number] #### LAB [address] [address] Mauricio Doll M.D. [id number] Hemoglobin (Bld) [Mass/Vol] 11.3 g/dL Low 12.0-16.0 [facility] Comment on above: Performed By: #### L [id number] #### LAB [address] [address] Mauricio Doll M.D. [id number] IG ABSOLUTE 0.03 K/mcL Normal 0.00-0.30 [facility] Comment on above: Performed By: #### L [id number] #### LAB [address] [address] Mauricio Doll M.D. [id number] IG PERCENT 0.30 % Normal [facility] Comment on above: Result Comment: The IG parameter is the percentage of metamyelocytes, myelocytes and promyelocytes. An immature granulocyte count (IG) of 1% or more suggests the possibility of infection, an IG count of 3% is very likely related to an infection. Performed By: #### L [id number] #### LAB [address] [place] [address] Mauricio Doll M.D. [id number] Lymphocytes (Bld) [#/Vol] 1.89 10*3/uL Normal 0.90-4.00 [facility] Comment on above: Performed By: #### L [id number] #### LAB [address] [address] Mauricio Doll M.D. [id number] Lymphocytes/100 WBC (Bld) 21.7 % Normal [facility] Comment on above: Performed By: #### L [id number] #### LAB [address] [address] Mauricio Doll M.D. [id number] MCH (RBC) [Entitic mass] 25.6 pg Low 26.0-34.0 [facility] Comment on above: Performed By: #### L [id number] #### LAB [address] [address] Mauricio Doll M.D. [id number] MCV (RBC) [Entitic vol] 82.8 fL Normal 80.0-100.0 [facility] Comment on above: Performed By: #### L [id number] #### LAB [address] [address] Mauricio Doll M.D. [id number] MEAN CORPUSCULAR HEMOGLOBIN CONC 31.0 g/dL Normal 31.0-37.0 [facility] Comment on above: Performed By: #### L [id number] #### LAB [address] [address] Mauricio Doll M.D. [id number] Monocytes (Bld) [#/Vol] 0.64 10*3/uL Normal 0.30-0.90 [facility] Comment on above: Performed By: #### L [id number] #### LAB [address] [address] Mauricio Doll M.D. [id number] Monocytes/100 WBC (Bld) 7.3 % Normal [facility] Comment on above: Performed By: #### L [id number] #### LAB [address] [place] [address] Mauricio Doll M.D. [id number] NEUTROPHILS ABSOLUTE COUNT 6.00 K/mcL Normal 1.70-7.00 [facility] Comment on above: Performed By: #### L [id number] #### LAB [address] [address] Mauricio Doll M.D. [id number] Neutrophils/100 WBC (Bld) 69.0 % Normal [facility] Comment on above: Performed By: #### L [id number] #### MH LAB [address] [address] Mauricio Doll M.D. [id number] Platelet mean volume (Bld) [Entitic vol] 9.5 fL Normal 9.4-12.4 [facility] Comment on above: Performed By: #### L [id number] #### MH LAB [address] [address] Mauricio Doll M.D. [id number] Platelets (Bld) [#/Vol] 292 10*3/uL Normal 150-400 [facility] Comment on above: Performed By: #### L [id number] #### MH LAB [address] [address] Mauricio Doll M.D. [id number] RBC (Bld) [#/Vol] 4.41 10*6/uL Normal 4.00-5.20 [facility] Comment on above: Performed By: #### L [id number] #### MH LAB [address] [address] Mauricio Doll M.D. [id number] WBC (Bld) [#/Vol] 8.71 10*3/uL Normal 4.50-11.00 [facility] Comment on above: Performed By: #### L [id number] #### [facility] LAB [address] [address] Mauricio Doll M.D. [id number] ED Prov Noteon 07-22-2023 ED Prov Note [facility] ED DIANNA Note: NAME: Onofre Denise 18 y.o. CSN: [id number] PCP: No, Physician History: Chief Complaint: Vaginal [...] apt August 18 with unknown OB in [place], [place]. PMHx: Past Medical History: Diagnosis Date [...] Abnormal; Notable for the following components: Specific [place] 1.028 (*) Blood, Urine Large (*) RBCs, [...] All other components within normal limits Narrative: [facility] has implemented the eGFR calculation [...] Procedure Abnormality Status --------- ------ CBC Auto Differential[[id number]] Abnormal Final result Please view results for these tests on the individual orders. US OB Transvaginal with Color Flow any Trimester Final Result 1. No evidence of intrauterine or ectopic (more content not included)... Normal [facility] HCG, BLOOD, QUANTITATIVEon 0 07-22-2023 HCG, QUANTITATIVE 9 mIU/mL High 0-5 [facility] Comment on above: Order Comment: Males and non females: <5 mIU/mL Females during : 3-4 weeks 9-130 mIU/mL 4-5 weeks 75-2600 mIU/mL 5-6 weeks 850-20,800 mIU/mL 6-7 weeks 4000-100,200 mIU/mL 7-12 weeks 11,500-289,000 mIU/mL 12-16 weeks 18,300-137,000 mIU/mL 16-29 weeks 1,400-53,000 mIU/mL 29-41 weeks 940-60,000 mIU/mL Performed By: #### 4 5827 #### LAB [address] [place], [place] [address] Mauricio Doll M.D. [id number] URINALYSISon 07-22-2023 BACTERIA, URINE None Seen Normal None Seen [facility] Comment on above: Order Comment: Micro scopic examination is performed on all urinalysis samples and only positive findings are reported. The test for blood on the chemical analytic portion of urinalysis may also be positive due to hemoglobinuria and myoglobinuria and if red blood cells are present they are quantified by microscopic examination. Performed By: #### 4 6625 #### LAB [address] [place], [place] [address] Mauricio Doll M.D. [id number] BILIRUBIN, URINE Negative Normal Negative [facility] Comment on above: Order Comment: Micro scopic examination is performed on all urinalysis samples and only positive findings are reported. The test for blood on the chemical analytic portion of urinalysis may also be positive due to hemoglobinuria and myoglobinuria and if red blood cells are present they are quantified by microscopic examination. Performed By: #### 4 6625 #### LAB [address] [address] Mauricio Doll M.D. [id number] BLOOD, URINE Large Abnormal Negative [facility] Comment on above: Order Comment: Micro scopic examination is performed on all urinalysis samples and only positive findings are reported. The test for blood on the chemical analytic portion of urinalysis may also be positive due to hemoglobinuria and myoglobinuria and if red blood cells are present they are quantified by microscopic examination. Performed By: #### 4 6625 #### LAB [address] [address] Mauricio Doll M.D. [id number] Clarity (U) Clear Normal Clear [facility] Comment on above: Order Comment: Micro scopic examination is performed on all urinalysis samples and only positive findings are reported. The test for blood on the chemical analytic portion of urinalysis may also be positive due to hemoglobinuria and myoglobinuria and if red blood cells are present they are quantified by microscopic examination. Performed By: #### 4 6625 #### LAB [address] [address] Mauricio Doll M.D. [id number] Color (U) Yellow Normal Colorless, Yellow [facility] Comment on above: Order Comment: Micro scopic examination is performed on all urinalysis samples and only positive findings are reported. The test for blood on the chemical analytic portion of urinalysis may also be positive due to hemoglobinuria and myoglobinuria and if red blood cells are present they are quantified by microscopic examination. Performed By: #### 4 6625 #### LAB [address] [address] Mauricio Doll M.D. [id number] Glucose Ql (U) Negative Normal Negative [facility] Comment on above: Order Comment: Micro scopic examination is performed on all urinalysis samples and only positive findings are reported. The test for blood on the chemical analytic portion of urinalysis may also be positive due to hemoglobinuria and myoglobinuria and if red blood cells are present they are quantified by microscopic examination. Performed By: #### 4 6625 #### LAB [address] [id number] Mauricio Doll M.D. [id number] Ketones Ql (U) Negative Normal Negative [facility] Comment on above: Order Comment: Micro scopic examination is performed on all urinalysis samples and only positive findings are reported. The test for blood on the chemical analytic portion of urinalysis may also be positive due to hemoglobinuria and myoglobinuria and if red blood cells are present they are quantified by microscopic examination. Performed By: #### 4 6625 #### LAB [address] [address] Mauricio Doll M.D. [id number] Leukocyte esterase Test strip Ql (U) Negative Normal Negative [facility] Comment on above: Order Comment: Micro scopic examination is performed on all urinalysis samples and only positive findings are reported. The test for blood on the chemical analytic portion of urinalysis may also be positive due to hemoglobinuria and myoglobinuria and if red blood cells are present they are quantified by microscopic examination. Performed By: #### 4 6625 #### LAB [address] [address] Mauricio Doll M.D. [id number] MUCUS, URINE Rare Normal None Seen, [facility] Comment on above: Order Comment: Micro scopic examination is performed on all urinalysis samples and only positive findings are reported. The test for blood on the chemical analytic portion of urinalysis may also be positive due to hemoglobinuria and myoglobinuria and if red blood cells are present they are quantified by microscopic examination. Performed By: #### 4 6625 #### LAB [address] [address] Mauricio Doll M.D. [id number] NITRITE, URINE Negative Normal [facility] Comment on above: Order Comment: Micro scopic examination is performed on all urinalysis samples and only positive findings are reported. The test for blood on the chemical analytic portion of urinalysis may also be positive due to hemoglobinuria and myoglobinuria and if red blood cells are present they are quantified by microscopic examination. Performed By: #### 4 6625 #### LAB [address] [id number] Mauricio Doll M.D. [id number] pH (U) 6.5 [pH] Normal 5.0-7.0 [facility] Comment on above: Order Comment: Micro scopic examination is performed on all urinalysis samples and only positive findings are reported. The test for blood on the chemical analytic portion of urinalysis may also be positive due to hemoglobinuria and myoglobinuria and if red blood cells are present they are quantified by microscopic examination. Performed By: #### 4 6625 #### LAB [address] [id number] Mauricio Doll M.D. [id number] PROTEIN, URINE Negative Normal Negative [facility] Comment on above: Order Comment: Micro scopic examination is performed on all urinalysis samples and only positive findings are reported. The test for blood on the chemical analytic portion of urinalysis may also be positive due to hemoglobinuria and myoglobinuria and if red blood cells are present they are quantified by microscopic examination. Performed By: #### 4 6625 #### LAB [address] [address] Mauricio Doll M.D. [id number] RBC, URINE > High 0-3 [facility] Comment on above: Order Comment: Micro scopic examination is performed on all urinalysis samples and only positive findings are reported. The test for blood on the chemical analytic portion of urinalysis may also be positive due to hemoglobinuria and myoglobinuria and if red blood cells are present they are quantified by microscopic examination. Performed By: #### 4 6625 #### LAB [address] [address] Mauricio Doll M.D. [id number] Specific gravity (U) [Rel density] 1.028 High 1.005-1.025 [facility] Comment on above: Order Comment: Micro scopic examination is performed on all urinalysis samples and only positive findings are reported. The test for blood on the chemical analytic portion of urinalysis may also be positive due to hemoglobinuria and myoglobinuria and if red blood cells are present they are quantified by microscopic examination. Performed By: #### 4 6625 #### LAB [address] [place], [place] [address] Mauricio Doll M.D. [id number] SQUAMOUS EPITHELIAL 5 /hpf High 0-4 [facility] Comment on above: Order Comment: Micro scopic examination is performed on all urinalysis samples and only positive findings are reported. The test for blood on the chemical analytic portion of urinalysis may also be positive due to hemoglobinuria and myoglobinuria and if red blood cells are present they are quantified by microscopic examination. Performed By: #### 4 6625 #### LAB [address] [place], [place] [address] Mauriico Doll M.D. [id number] TRANSITIONAL EPITHELIAL < Normal 0-1 [facility] Comment on above: Order Comment: Micro scopic examination is performed on all urinalysis samples and only positive findings are reported. The test for blood on the chemical analytic portion of urinalysis may also be positive due to hemoglobinuria and myoglobinuria and if red blood cells are present they are quantified by microscopic examination. Performed By: #### 4 6625 #### LAB [address] [place], [place] [address] Mauricio Doll M.D. [id number] UROBILINOGEN, URINE <2.0 Normal <2.0 [facility] Comment on above: Order Comment: Micro scopic examination is performed on all urinalysis samples and only positive findings are reported. The test for blood on the chemical analytic portion of urinalysis may also be positive due to hemoglobinuria and myoglobinuria and if red blood cells are present they are quantified by microscopic examination. Performed By: #### 4 6625 #### LAB [address] [place], [place] [address] Mauricio Doll M.D. [id number] WBC LM.HPF (Urine sed) [#/Area] 3 /[HPF] Normal 0-5 [facility] Comment on above: Order Comment: Micro scopic examination is performed on all urinalysis samples and only positive findings are reported. The test for blood on the chemical analytic portion of urinalysis may also be positive due to hemoglobinuria and myoglobinuria and if red blood cells are present they are quantified by microscopic examination. Performed By: #### 4 6625 #### [facility] [address] [facility] [address] Mauricio Doll M.D. [id number] US OB TRANSVAGINAL WITH COLO R FLOW [...] on ThuJuly 22, 2023 11:24:47 AM EDT [facility] Comment on above: Order Comment: Injur y/Trauma or Illness?:Illness/Other How long have you had these symptoms (acute/chronic)?:Acute Reason for exam?:Vaginal beeding History of cancer?:. Surgeries, chemotherapy, or radiation?:. Type of Exam?:Subsequent/Follow-up Additional signs and symptoms?:. ABO/RH(D)on 07-18-2023 ABO/RH(D) Positive [facility] Comment on above: Performed By: #### A BR ####Testing performed at [address] [address] ABO/RH(D) TYPINGon 4 ABO and Rh group Nom (Bld ) Positive [facility] BHCG,QUANTITATIVEon 07-18-19 24 BHCG,QUANTITATIVE 38.19 MIU/ML Normal [facility] Comment on above: Result Comment: BHCG INTERPRETIVE [...] By: #### B HCG2 ####Testing performed at [address] [address] Narrative [Interpretat ion] Study observation.general transvaginal 1st [...] yet visualized, ectopic or recent spontaneous miscarriage. [facility] Radiology Study observation (narrative) [facility] Narrative [Interpretat ion] Study observation.general transvaginal 1st trimester USOrdered By: Shahid Flores on 07-18-2023 [facility] Work Phone: HCG ( test) Qlon HCG.beta subunit Qn 38.19 m[IU]/mL MIU/ML A [facility] Comment on above: [facility] INTERPRETIVE RANGES: NON FEMALE 0-6 [...] include the qualitative hCG testing of urine. [facility] HCG ( test) Ql (U)o n 07-18-2023 Interpretation and review of laboratory results Abnormal [facility] HCG QUALITATIVE, URINEon HCG ( test) Ql (U) Positive Abnormal NEGATIVE [facility] URINALYSIS, MACROon 07-18-19 24 Bilirubin Ql (U) Negative NEGATIVE [facility] Clarity (U) CLEAR CLEAR [facility] Color (U) YELLOW YELLOW [facility] Glucose Test strip (U) [Mass/Vol] Negative NEGATIVE mg/dl [facility] Hemoglobin Ql (U) Negative NEGATIVE [facility] Interpretation and review of laboratory results Abnormal [facility] Ketones (U) [Mass/Vol] TRACE Abnormal NEGATIVE mg/dl [facility] Leukocyte esterase Test strip Ql (U) Negative NEGATIVE [facility] Nitrite Ql (U) Negative NEGATIVE [facility] pH (U) 6.0 [pH] 5.0 - 7.0 [facility] Protein Ql (U) Negative NEGATIVE mg/dl [facility] Specific gravity (U) [Rel density] >1.030 High 1.010 - 1.025 [facility] Urobilinogen (U) [Mass/Vol] 0.2 mg/dL [facility] URINE HCG QUALon 07-18-2023 Beta HCG ( test) Ql (U) Positive Abnormal NEGATIVE [facility] Comment on above: Performed By: #### U HCGT, UMAC #### Testing performed at [address] [address] URINE MACROSCOPICon 07-18-19 Bilirubin Ql (U) Negative Normal NEGATIVE [facility] Comment on above: Performed By: #### U HCGT, UMAC #### Testing performed at [address] [address] Clarity (U) CLEAR Normal CLEAR [facility] Comment on above: Performed By: #### U HCGT, UMAC #### Testing performed at [address] [address] Color (U) YELLOW Normal YELLOW [facility] Comment on above: Performed By: #### U HCGT, UMAC #### Testing performed at [address] [address] Glucose Ql (U) Negative Normal NEGATIVE [facility] Comment on above: Performed By: #### U HCGT, UMAC #### Testing performed at [address] [address] pH (U) 6.0 [pH] Normal 5.0-7.0 [facility] Comment on above: Performed By: #### U HCGT, UMAC #### Testing performed at [address] [address] URINE HEMOGLOBIN Negative Normal NEGATIVE [facility] Comment on above: Performed By: #### U HCGT, UMAC #### Testing performed at [address] [address] URINE KETONE TRACE Abnormal NEGATIVE [facility] Comment on above: Performed By: #### U HCGT, UMAC #### Testing performed at [address] [address] URINE LEUKOTEST Negative Normal NEGATIVE [facility] Comment on above: Performed By: #### U HCGT, UMAC #### Testing performed at [address] [address] URINE NITRATES Negative Normal NEGATIVE [facility] Comment on above: Performed By: #### U HCGT, UMAC #### Testing performed at [address] [address] URINE SPEC GRAVITY >1.030 High 1.010-1.025 [facility] Comment on above: Performed By: #### U HCGT, UMAC #### Testing performed at [address] [address] URINE TOTAL PROTEIN Negative Normal NEGATIVE [facility] Comment on above: Performed By: #### U HCGT, UMAC #### Testing performed at [address] [address] Urobilinogen Qn (U) 0.2 {Audi'U}/dL Normal 0.2-1.0 [facility] Comment on above: Performed By: #### U HCGT, UMAC #### Testing performed at [address] [address] US OB TRANSVAGINAL/CERVICAL LENGTHon 07-18-2023 US OB [...] visualized, ectopic or recent spontaneous miscarriage. Normal [facility] CNOVon 06-01-2023 CNOV Office Visit (OBGYWM ) ONOFRE DENISE ([id number]) 1 F Date Time Provider Department 06/01/23 4:00 PM JADA FRENCH OBGYWM During your visit today, we recorded the following information about you: Blood pressure Weight 120/82 95.3 kg Jada French APRN.SALES NEGOTIATOR 06/01/2023 4:53 PM Signed Casting Machine Set Up Operator offered: Patient declines. Jones is a 18 [...] the dressing after 24 hours. Jada French APRN.[facility] Referring Provider: TRACEE MCDANIEL [[id number]] Allergies As of Date: 06/01/2023 (No Known [...] JADA FRENCH on 06/01/23 [facility] ONOFRE DENISE ([id number]) 1 F Date Time Provider Department 04/28/23 TRACEE MCDAINEL OBGYWM During your visit today, we recorded [...] Primary Visit Diagnosis:Nexplanon removal [Z30.46] Order(s):NEXPLANON REMOVAL [[id number]] Order #: [id number] Prescriptions as of 04/29/2023 - etonogestrel (NEXPLANON) subdermal implant 68 mg 1 Each by SUBDERMAL route as directed. Problem List As Of Date: 04/28/2023 (None) Encounter Status:[facility] ([facility]) ONOFRE DENISE ([id number]) 1 F Date Time Provider Department 04/15/23 TRACEE MCDANIEL During your visit today, we recorded the following information about you: Lalitha oCnnolly RN 04/15/2023 11:01 AM Signed Patient calling [...] of now. Please advise. KAMILLE Long Amy, APRN.SALES NEGOTIATOR 04/15/2023 12:51 PM Signed RLQ worse with [...] Encounter Status:Closed by ELENA ANTUNEZ on 04/15/23 [facility] CNOVon 10-13-2022 CNOV Office Visit (OBGYWM ) ONOFRE DENISE ([id number]) 1 F Date Time Provider Department 10/13/22 1:40 PM AMINATA WAGONER OBGYWM During your visit today, we recorded the following information about you: Blood pressure Weight Last Period 110/70 85.3 kg 10/08/22 Aminata Wagoner MD 10/13/2022 2:10 PM Signed Casting Machine Set Up Operator offered: Patient declines. 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 Comments: Sexual Activity: Never; No partner [...] which included preparing to see the patient, [id number] patient care, completing clinical documentation, obtaining and/or [...] AMINATA DE LA CRUZ on 10/13/22 Normal [facility] CBCon 09-26-2022 ABSOLUTE BAS 0.0 10*3/uL Normal 0.0-0.2 [facility] Comment on above: Performed By: #### ROLANDA Stephenson ACBC #### Testing performed at [address] [address] ABSOLUTE EOS 0.1 10*3/uL Normal 0.0-0.7 [facility] Comment on above: Performed By: #### ROLANDA Stephenson ACBC #### Testing performed at [address] [address] ABSOLUTE NEUTROPHIL COUNT 7.3 10*3/uL High 1.4-6.5 [facility] Comment on above: Performed By: #### ROLANDA Stephenson ACBC #### Testing performed at [address] [address] Basophils/100 WBC (Bld) 0.4 % Normal 0.0-2.0 [facility] Comment on above: Performed By: #### ROLANDA Stephenson ACBC #### Testing performed at [address] [place] [address] DTYPE AUTO DIFF Normal [facility] Comment on above: Performed By: #### ROLANDA Stephenson ACBC #### Testing performed at [address] [place] [address] Eosinophils/100 WBC (Bld) 1.1 % Normal 0.0-11.0 [facility] Comment on above: Performed By: #### ROLANDA Stephenson ACBC #### Testing performed at [address] [place] [address] Lymphocytes (Bld) [#/Vol] 1.7 10*3/uL Normal 1.2-3.4 [facility] Comment on above: Performed By: #### ROLANDA Stephenson ACMATT #### Testing performed at [address] [address] Lymphocytes/100 WBC (Bld) 16.8 % Low 20.0-55.0 [facility] Comment on above: Performed By: #### ROLANDA Stephenson ACBC #### Testing performed at [address] [address] Monocytes (Bld) [#/Vol] 0.8 10*3/uL High 0.0-0.7 [facility] Comment on above: Performed By: #### ROLANDA Stephenson ACBC #### Testing performed at [address] [place] [address] Monocytes/100 WBC (Bld) 7.9 % Normal 0.0-10.0 [facility] Comment on above: Performed By: #### ROLANDA Stephenson ACBC #### Testing performed at [address] [place] [address] Neutrophils/100 WBC (Bld) 73.8 % Normal 37.0-75.0 [facility] Comment on above: Performed By: #### ROLANDA Stephenson ACBC #### Testing performed at [address] [place] [address] Erythrocyte distribution width (RBC) [Ratio] 15.2 % High 11.5-14.5 [facility] Comment on above: Performed By: #### M G, CMPF, ACBC #### Testing performed at [address] [address] Hematocrit (Bld) [Volume fraction] 34.0 % Low 36.0-48.0 [facility] Comment on above: Performed By: #### Dimitri Garcia CMPF, ACBC #### Testing performed at [address] [address] Hemoglobin (Bld) [Mass/Vol] 10.8 g/dL Low 12.0-16.0 [facility] Comment on above: Performed By: #### Dimitri Garcia CMPSourav, ACBC #### Testing performed at [address] [address] MCH (RBC) [Entitic mass] 24.1 pg Low 26.0-35.0 [facility] Comment on above: Performed By: #### ROLANDA Stephenson, ACBC #### Testing performed at [address] [address] MCHC (RBC) [Mass/Vol] 31.8 g/dL Normal 27.0-37.0 [facility] Comment on above: Performed By: #### ROLANDA Stephenson, ACBC #### Testing performed at [address] [address] MCV (RBC) [Entitic vol] 75.7 fL Low 80.0-100.0 [facility] Comment on above: Performed By: #### ROLANDA Stephenson, ACBC #### Testing performed at [address] [address] Platelet mean volume (Bld) [Entitic vol] 7.8 fL Normal 7.4-11.0 [facility] Comment on above: Performed By: #### Dimitri Garcia CMPF, ACBC #### Testing performed at [address] [address] Platelets (Bld) [#/Vol] 283 10*3/uL Normal 130-400 [facility] Comment on above: Performed By: #### Dimitri Garcia, CMPF, ACBC #### Testing performed at [address] [address] RBC (Bld) [#/Vol] 4.49 10*6/uL Normal 4.0-5.4 [facility] Comment on above: Performed By: #### Dimitri Garcia CMPF, ACBC #### Testing performed at [address] [address] WBC (Bld) [#/Vol] 9.9 10*3/uL Normal 3.6-11.0 [facility] Comment on above: Performed By: #### Dimitri Garcia CMPF, ACBC #### Testing performed at [address] [address] CHLAMYDIA/GCon 09-26-2022 CHLAMYDIA TRACH Not detected Normal NOT DETECTED [facility] Comment on above: Performed By: #### C TNG #### Testing performed at [address] [address] N.GONORRHOEAE Not detected Normal NOT DETECTED [facility] Comment on above: Result Comment: TEST ING PERFORMED BY PCR Performed By: #### C TNG #### Testing performed at [address] [address] CMP FASTINGon 09-26-2022 A:G RATIO 1.5 RATIO Normal [facility] Comment on above: Performed By: #### ROLANDA Stephenson, ACBC #### Testing performed at [address] [address] ALBUMIN 4.5 G/dl Normal 3.5-5.0 [facility] Comment on above: Performed By: #### Dimitri Garcia CMPF, ACBC #### Testing performed at [address] [address] ALP [Catalytic activity/Vol] 93 U/L Normal 38-126 [facility] Comment on above: Performed By: #### Dimitri Garcia CMPF, ACBC #### Testing performed at [address] [address] ALT [Catalytic activity/Vol] 26 U/L Normal <35 [facility] Comment on above: Performed By: #### Dimitri Garcia CMPF, ACBC #### Testing performed at [address] [address] AST [Catalytic activity/Vol] 28 U/L Normal 14-36 [facility] Comment on above: Performed By: #### ROLANDA Stephenson ACBC #### Testing performed at [address] [address] Bilirubin [Mass/Vol] 0.3 mg/dL Normal 0.2-1.3 [facility] Comment on above: Performed By: #### ROLANDA Stephenson ACBC #### Testing performed at [address] [address] Calcium [Mass/Vol] 9.0 mg/dL Normal 8.4-10.2 [facility] Comment on above: Performed By: #### ROLANDA Stephenson ACBC #### Testing performed at [address] [address] Chloride [Moles/Vol] 107 mmol/L Normal 98-107 [facility] Comment on above: Result Comment: Plebladimir perez note: Triglyceride levels of 600mg/dL or higher may positively bias chloride results by approximately 2.1 mmol Performed By: #### ROLANDA Stephenson ACBC #### Testing performed at [address] [address] CO2 [Moles/Vol] 22 mmol/L Normal 22-30 [facility] Comment on above: Performed By: #### ROLANDA Stephenson ACBC #### Testing performed at [address] [address] Creatinine [Mass/Vol] 0.54 mg/dL Low 0.70-1.20 [facility] Comment on above: Performed By: #### ROLANDA Stephenson ACBC #### Testing performed at [address] [address] GFR Information Unable to calculate GFR due to inappropriate age/gender/creatinine value. Normal [facility] Comment on above: Performed By: #### ROLANDA Stephenson ACBC #### Testing performed at [address] [address] Glucose [Mass/Vol] 105 mg/dL High 70-100 [facility] Comment on above: Result Comment: NORMAL <100 mg/dL PREDIABETES 101-126 mg/dL DIABETES 126 mg/dL or higher Performed By: #### M G, CMPF, ACBC #### Testing performed at [address] [address] Potassium [Moles/Vol] 3.4 mmol/L Low 3.5-5.1 [facility] Comment on above: Performed By: #### Dimitri Garcia CMPF, ACBC #### Testing performed at [address] [address] Protein [Mass/Vol] 7.5 g/dL Normal 6.3-8.2 [facility] Comment on above: Performed By: #### ROLANDA Stephenson, ACBC #### Testing performed at [address] [address] Sodium [Moles/Vol] 139 mmol/L Normal 137-145 [facility] Comment on above: Performed By: #### ROLANDA Stephenson, ACBC #### Testing performed at [address] [address] Urea nitrogen [Mass/Vol] 8 mg/dL Normal 7-20 [facility] Comment on above: Performed By: #### ROLANDA Stephenson, ACBC #### Testing performed at [address] [address] [address] ABDOMEN/PELVIS WITH CONTR Kyler 09-26-2022 CT [...] No acute intra-abdominal or pelvic finding. Normal [facility] LACTATE,BLOODon 09-26-2022 Lactate [Moles/Vol] 1.6 mmol/L Normal 0.7-2.0 [facility] Comment on above: Performed By: #### L ACTAC ####Testing performed at [address] [place] [address] MAGNESIUMon 09-26-2022 Magnesium [Mass/Vol] 1.9 mg/dL Normal 1.6-2.3 [facility] Comment on above: Performed By: #### M G, CMPF, ACBC ####Testing performed at [address] [place] [address] URINE HCG QUALon 09-26-2022 Beta HCG ( test) Ql (U) Negative Normal NEGATIVE [facility] Comment on above: Performed By: #### U MAC, UHCGT #### Testing performed at [address] [address] URINE MACROSCOPICon 09-27-19 Bilirubin Ql (U) Negative Normal NEGATIVE [facility] Comment on above: Performed By: #### U MAC, UHCGT #### Testing performed at [address] [address] Clarity (U) CLEAR Normal CLEAR [facility] Comment on above: Performed By: #### U MAC, UHCGT #### Testing performed at [address] [address] Color (U) YELLOW Normal YELLOW [facility] Comment on above: Performed By: #### U MAC, UHCGT #### Testing performed at [address] [address] Glucose Ql (U) Negative Normal NEGATIVE [facility] Comment on above: Performed By: #### U MAC, UHCGT #### Testing performed at [address] [address] pH (U) 7.0 [pH] Normal 5.0-7.0 [facility] Comment on above: Performed By: #### U MAC, UHCGT #### Testing performed at [address] [place] [address] URINE HEMOGLOBIN Negative Normal NEGATIVE [facility] Comment on above: Performed By: #### U MAC, UHCGT #### Testing performed at [address] [address] URINE KETONE Negative Normal NEGATIVE [facility] Comment on above: Performed By: #### U MAC, UHCGT #### Testing performed at [address] [address] URINE LEUKOTEST Negative Normal NEGATIVE [facility] Comment on above: Performed By: #### U MAC, UHCGT #### Testing performed at [address] [address] URINE NITRATES Negative Normal NEGATIVE [facility] Comment on above: Performed By: #### U MAC, UHCGT #### Testing performed at [address] [address] URINE SPEC GRAVITY 1.025 Normal 1.010-1.025 [facility] Comment on above: Performed By: #### U MAC, UHCGT #### Testing performed at [address] [address] URINE TOTAL PROTEIN Negative Normal NEGATIVE [facility] Comment on above: Performed By: #### U MAC, UHCGT #### Testing performed at [address] [address] Urobilinogen Qn (U) 0.2 {Audi'U}/dL Normal 0.2-1.0 [facility] Comment on above: Performed By: #### U MAC, CGT #### Testing performed at [address] [address] US TRANSVAGINAL WITH DOPPLER on 09-26-2022 US [...] of ovarian torsion. Free pelvic fluid. 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 Allergies As of Date: 07/23/2022 (No Known Allergies) Date Reviewed: 07/23/2022 Reviewed by: Tracee Mcdaniel APRN.SALES NEGOTIATOR - Fully Assessed Reason for Visit: questions about nexplanon [Other] Primary Visit Diagnosis:Nausea [R11.0] Other Visit Diagnoses:Breast tenderness [N64.4] Malaise and fatigue [R53.81, R53.83] Nexplanon in place [Z97.5] Order(s):HCG QUAL UR B/O [[id number]] Order #: [id number] Prescriptions as of 07/23/2022 - etonogestrel (NEXPLANON) subdermal implant 68 mg 1 Each by SUBDERMAL route as directed. Problem List As Of Date: 07/23/2022 (None) Encounter Status:Closed by MCDANIELTRACEE KLEIN on 07/23/22 Normal [facility] HCG QUAL UR B/Oon 07-23-2022 status Negative neg - pos Santhosh carter [facility] Quality Check Yes [facility] XR SHOULDER MINIMUM 2 VIEWS RIGHTon [...] 03/06/2022 11:55:48 AM Ordering Provider: EDMUND SHAW [facility] ([place] Vital Signs Date Time Vital Sign Value Performing Clinician Facility 12-18-2024 02:38-0400 Body height 172.[address] Hyacinth Horne DO Work Phone: [place] 12-18-2024 02:38-0400 Body mass index (BMI) [Ratio] 31.1 kg/m2 Dr. Hyacinth Horne DO Work Phone: [place] 12-18-2024 02:38-0400 Body temperature 97.6 [degF] Dr. Hyacinth Horne DO Work Phone: [place] 12-18-2024 02:38-0400 Body weight [address] Hyacinth Horne DO Work Phone: [place] 12-18-2024 02:38-0400 Diastolic blood pressure 85 mm[Hg] Dr. Hyacinth Horne DO Work Phone: [place] 12-18-2024 02:38-0400 Heart rate 69 /min Dr. Hyacinth Horne DO Work Phone: [place] 12-18-2024 02:38-0400 Respiratory rate 16 /min Dr. Hyacinth Horne DO Work Phone: [place] 12-18-2024 02:38-0400 SaO2% (BldA) [Mass fraction] 99 % Dr. Hyacinth Horne DO Work Phone: [place] 12-18-2024 02:38-0400 Systolic blood pressure 113 mm[Hg] Dr. Hyacinth Horne DO Work Phone: [place] 07-18-2023 19:05-0400 Diastolic blood pressure 80 mm[Hg] Berry Frazier MD Work Phone: [facility] 07-18-2023 19:05-0400 Heart rate 90 /min Berry Frazier MD Work Phone: [facility] 07-18-2023 19:05-0400 Respiratory rate 18 /min Berry Frazier MD Work Phone: [facility] 07-18-2023 19:05-0400 SaO2% (BldA) [Mass fraction] 98 % Berry Frazier MD Work Phone: [facility] 07-18-2023 19:05-0400 Systolic blood pressure 117 mm[Hg] Berry Frazier MD Work Phone: [facility] 07-18-2023 16:13-0400 Body height 172.7 cm Berry Frazier MD Work Phone: [facility] 07-18-2023 16:13-0400 Body mass index (BMI) [Ratio] 32.54 kg/m2 Berry Frazier MD Work Phone: [facility] 07-18-2023 16:13-0400 Body temperature 99.19 [degF] Berry Frazier MD Work Phone: [facility] 07-18-2023 16:13-0400 Body weight 97.07 kg Berry Frazier MD Work Phone: [facility] 06-01-2023 16:07-0400 Body weight 95.25 kg Jada Reno SERVICE COORDINATOR [employer]LD[employer] FACILITY.SALES NEGOTIATOR Work Phone: [facility] 06-01-2023 16:07-0400 Diastolic blood pressure 82 mm[Hg] Jada Manolo SERVICE COORDINATOR [facility]LD[facility] FACILITY.SALES NEGOTIATOR Work Phone: [facility] 06-01-2023 16:07-0400 Systolic blood pressure 120 mm[Hg] Jada Reno SERVICE COORDINATOR [facility] FACILITY.SALES NEGOTIATOR Work Phone: [facility] 07-23-2022 11:24-0400 Body weight 81.28 kg Tracee Chambershrie SERVICE COORDINATOR [facility]LD[facility] FACILITY.SALES NEGOTIATOR Work Phone: [facility] 07-23-2022 11:24-0400 Diastolic blood pressure 72 mm[Hg] Tracee Mcdaniel SERVICE COORDINATOR [facility] FACILITY.SALES NEGOTIATOR Work Phone: [facility] 07-23-2022 11:24-0400 Systolic blood pressure 124 mm[Hg] Tracee Mcdaniel SERVICE COORDINATOR [facility]LD[employer] FACILITY.SALES NEGOTIATOR Work Phone: [facility] 03-03-2022 17:23-0500 Body height 172.72 cm [facility] Work Phone: 03-03-2022 17:23-0500 Body mass index (BMI) [Percentile] Per age and sex 69 % [place] Work Phone: 03-03-2022 17:23-0500 Body mass index (BMI) [Ratio] 23.4 kg/m2 [place] Work Phone: 03-03-2022 17:23-0500 Body temperature 98.5 [degF] [facility] Work Phone: 03-03-2022 17:23-0500 Body weight 69.85 kg [facility] Work Phone: 03-03-2022 17:23-0500 Diastolic blood pressure 90 mm[Hg] [place] Work Phone: 03-03-2022 17:23-0500 Heart rate 103 /min [facility] Work Phone: 03-03-2022 17:23-0500 Respiratory rate 18 /min [facility] Work Phone: 03-03-2022 17:23-0500 SaO2% (BldA) [Mass fraction] 99 % [place] Work Phone: 03-03-2022 17:23-0500 Systolic blood pressure 144 mm[Hg] [place] Work Phone: 02-02-2022 20:01-0500 Body height 170.18 cm [facility] Work Phone: 02-02-2022 20:01-0500 Body mass index (BMI) [Percentile] Per age and sex 84.1 % [place] Work Phone: 02-02-2022 20:01-0500 Body mass index (BMI) [Ratio] 25.9 kg/m2 [place] Work Phone: 02-02-2022 20:01-0500 Body temperature 100.5 [degF] [facility] Work Phone: 02-02-2022 20:01-0500 Body weight 75.3 kg [facility] Work Phone: 02-02-2022 20:01-0500 Diastolic blood pressure 86 mm[Hg] [place] Work Phone: 02-02-2022 20:01-0500 Heart rate 100 /min [facility] Work Phone: 02-02-2022 20:01-0500 Respiratory rate 18 /min [facility] Work Phone: 02-02-2022 20:01-0500 SaO2% (BldA) [Mass fraction] 98 % [place] Work Phone: 02-02-2022 20:01-0500 Systolic blood pressure 123 mm[Hg] [place] Work Phone: 08-30-2021 02:19-0400 Respiratory rate 17 /min [facility] Work Phone: 08-30-2021 02:19-0400 SaO2% (BldA) [Mass fraction] 100 % [place] Work Phone: 08-30-2021 01:26-0400 Body height 172.72 cm [facility] Work Phone: 08-30-2021 01:26-0400 Body mass index (BMI) [Percentile] Per age and sex 83.1 % [place] Work Phone: 08-30-2021 01:26-0400 Body mass index (BMI) [Ratio] 25.5 kg/m2 [place] Work Phone: 08-30-2021 01:26-0400 Body temperature 97.5 [degF] [facility] Work Phone: 08-30-2021 01:26-0400 Body weight 76.2 kg [facility] Work Phone: 08-30-2021 01:26-0400 Diastolic blood pressure 68 mm[Hg] [place] Work Phone: 08-30-2021 01:26-0400 Heart rate 70 /min [facility] Work Phone: 08-30-2021 01:26-0400 Systolic blood pressure 199 mm[Hg] [place] Work Phone: 07-30-2021 20:33-0400 Diastolic blood pressure 68 mm[Hg] [place] Work Phone: 07-30-2021 20:33-0400 Heart rate 64 /min [facility] Work Phone: 07-30-2021 20:33-0400 Respiratory rate 17 /min [facility] Work Phone: 07-30-2021 20:33-0400 SaO2% (BldA) [Mass fraction] 98 % [place] Work Phone: 07-30-2021 20:33-0400 Systolic blood pressure 117 mm[Hg] [place] Work Phone: 07-30-2021 20:01-0400 Body mass index (BMI) [Percentile] Per age and sex 76.9 % [place] Work Phone: 07-30-2021 20:01-0400 Body mass index (BMI) [Ratio] 24.3 kg/m2 [place] Work Phone: 07-30-2021 20:01-0400 Body temperature 97.8 [degF] [facility] Work Phone: 07-30-2021 20:01-0400 Body weight 72.57 kg [facility] Work Phone: 03-08-2021 15:22-0500 Body height 170.2 cm Melody Eldridge MD Work Phone: [facility] 03-08-2021 15:22-0500 Body mass index (BMI) [Percentile] Per age and sex 76.69 % Melody Eldridge MD Work Phone: [facility] 03-08-2021 15:22-0500 Body mass index (BMI) [Ratio] 24.12 kg/m2 Melody Eldridge MD Work Phone: [facility] [employer] 03-08-2021 15:22-0500 Body temperature 98.01 [degF] Melody Eldridge MD Work Phone: [facility] [employer] 03-08-2021 15:22-0500 Body weight 69.85 kg Melody Eldridge MD Work Phone: [facility] [employer] 03-08-2021 15:22-0500 Diastolic blood pressure 73 mm[Hg] Melody Eldridge MD Work Phone: [employer] 03-08-2021 15:22-0500 Heart rate 79 /min Melody Eldridge MD Work Phone: [employer] 03-08-2021 15:22-0500 Respiratory rate 18 /min Melody Eldridge MD Work Phone: [employer] 03-08-2021 15:22-0500 SaO2% (BldA) [Mass fraction] 99 % Melody Eldridge MD Work Phone: [employer] 03-08-2021 15:22-0500 Systolic blood pressure 117 mm[Hg] Melody Eldridge MD Work Phone: [employer] Encounters Encounter Date Encounter Type Care Provider Facility Start: 12-18-2024 End: 12-18-2024 Emergency department patient visit [facility] Facility:[place] Start: 10-12-2024 End: 10-12-2024 Emergency department patient visit HYACINTH R [facility] Start: 10-07-2023 End: 10-07-2023 Emergency department patient visit HYACINTH R [facility] Start: 07-22-2023 End: 07-22-2023 Emergency department patient visit CASSIUS JAKE [facility] Start: 07-18-2023 End: 07-18-2023 Emergency department patient visit BERRY FRAZIER [facility] Start: 07-18-2023 End: 07-18-2023 Emergency department patient visit Berry Frazier MD Work Phone: [facility] Start: 06-01-2023 End: 06-01-2023 ambulatory JADA FRENCH Facility:[facility] Start: 06-01-2023 End: 06-01-2023 Patient encounter procedure Jada French APRN.SALES NEGOTIATOR Work Phone: OB/Gynecology Comment on above: Encounter for Nexpla non removal (Primary Dx) Start: 04-28-2023 Telephone encounter Tracee rossi APRN.SALES NEGOTIATOR Work Phone: OB/Gynecology Comment on above: Orders Start: 04-15-2023 Telephone encounter Tracee rossi APRN.CNP Work Phone: OB/Gynecology Comment on above: Pelvic Pain (/) Start: 10-13-2022 End: 10-13-2022 ambulatory AMINATA RAMIREZNTOSH Facility:[facility] Start: 09-26-2022 End: 09-26-2022 Emergency department patient visit TAHIR K [facility] Start: 07-23-2022 End: 07-24-2022 ambulatory TRACEE MCDANIEL Facility:[facility] Start: 07-23-2022 End: 07-23-2022 Patient encounter procedure Tracee Mcdaniel APRN.SALES NEGOTIATOR Work Phone: OB/Gynecology Comment on above: Nausea (Primary Dx); Breast tenderness; Malaise and fatigue; Nexplanon in place Start: 03-06-2022 End: 03-06-2022 Emergency department patient visit HYACINTH R CAROLYN Facility:[facility] Start: 03-03-2022 End: 03-03-2022 Emergency department patient visit [facility] Start: 02-02-2022 End: 02-02-2022 Emergency department patient visit [facility] Start: 08-30-2021 End: 08-30-2021 Emergency department patient visit [facility] Start: 07-30-2021 End: 07-30-2021 Emergency department patient visit [facility] Start: 03-08-2021 End: 03-08-2021 Emergency department patient visit Melody Eldridge MD Work Phone: [facility] Comment on above: Viral syndrome (Prim [...] test visual color cmprsn meths Tracee Mcdaniel SERVICE COORDINATOR [facility] FACILITY.SALES NEGOTIATOR Work Phone: Start: 03-03-2022 CT of head without contrast Start: 03-03-2022 Plain x-ray of wrist Start: 07-30-2021 Plain chest X-ray Influenza Types A,B Direct FA ([facility]) Plan of Treatment Date Care Activity Detail Author Start: 12-18-2024 [facility] Start: 11-08-2023 Influenza vaccination INFLUENZ A VACCINE (Season Ended) [facility] Start: 09-27-2023 Screening for Chlamy jake trachomatis [facility] Start: 03-09-2023 Depression Assessment Depression Ass [facility] Start: 11-07-2022 Covid-19 Vaccine ( season) Covid-19 Vaccine ( season) [facility] Start: 11-07-2022 Influenza vaccination [facility] Start: 03-09-2022 DEPRESSION ASSESSMENT DEPRESSION ASS [facility] Start: 02-02-2022 Influenza A and B vi kamlesh antigen assay [place] Work Phone: Start: 2022 Third diphtheria, tetanus and acellular pertussis (DTaP) vaccination TDAP (ADULT) [facility] Start: 2021 CHLAMYDIA SCREENING (18-24) CHLAMYDIA SCREENING (18-24) [facility] Start: 2021 GC (GONORRHEA) SCREE MAY (18-24) GC (GONORRHEA) SCREENING (18-24) [facility] Start: 2021 HEPATITIS C SCREENING HEPATITIS C [facility] Start: 2021 Hepatitis C screening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
--- NOTE | 2025-02-25 01:47 | EX.ED.DYSGE1 ---
HPI History of Present Illness Chief Complaint: Headache Narrative Narrative: Patient was seen and examined after presenting to ED for neck muscle spasm she states that it is causing her to have a headache she has no fevers no chills she has had history of migraines in the past denies having any recent sick symptoms or fevers. [facility] Medical History Migraine Clavicle fracture Home Medications ?Medication ?Instructions ?Recorded ?Last Taken ?Type [id number] 250 2 tab PO Q6H PRN pain #90 tabs 01/26/25 Unknown Rx mg-250 mg-65 mg tablet (Excedrin Migraine) Allergy/AdvReac Type Severity Reaction Status Date / Time No Known Allergies Allergy Verified 02/24/25 23:27 Social History household members: significant other Smoking Status: Never smoker substance use type: does not use ROS ROS ED ROS Narrative Pertinent Positives: Neck muscle spasm causing headache Pertinent Negatives: Vision changes chest pain pressure shortness of breath fevers chills vision changes vomiting The remainder of review of systems negative unless otherwise stated in the HPI above. Systems reviewed including constitutional, psychiatric, cardiovascular, respiratory, integument, HENT, gastrointestinal. EXAM Physical Exam Narrative Exam Narrative: Patient is afebrile hemodynamically stable does not appear toxic or in distress she does have normal range of motion of her head and neck. She has exact reproducible pain of the paracervical spinal muscles of her neck pupils equal round reactive to light her extremities are moving without answered difficulty Const Vital Signs: 02/24/25 23:23 Temperature 97.7 F L Temperature Source Oral Pulse Rate 101 H Respiratory Rate 20 H Blood Pressure 136/95 H Blood Pressure Mean 108 Pulse Ox 100 Oxygen Delivery Method Room Air MDM MDM MDM Narrative Medical decision making narrative: Nursing notes, triage notes, available previous documentation, and vital signs were reviewed. Any discrepancies noted were addressed. Differential Diagnoses: This is not meningitis spinal epidural abscess or herniated disc this is cervical paraspinous muscle spasms causing symptoms this not a subarachnoid hemorrhage or intracranial mass Interventions: Valium and Toradol Previous Documentation Reviewed: None available or applicable at this time. ED Course: Patient presenting with symptoms as stated above this is very consistent for musculoskeletal neck muscle spasm patient was given medications she actually ended up improving to the point where she was actually requesting to be discharged believe any labs or imaging are necessary at this point in time return precautions follow-up recommendations provided she is stable for discharge. This note was made utilizing voice recognition software. All attempts were made to correct spelling or other errors prior to note completion. However, due to the fast-paced nature of emergency medicine, some errors may still be present. Discharge Plan Triage Chief Complaint: Headache ED Provider: María Elena Novoa Dx/Rx/DC Orders Clinical Impression: Cervical paraspinal muscle spasm, Headache Instructions: ED Neck Spasm, No Trauma Prescriptions: No Action [id number]-[id number] [Excedrin Migraine] 250-250-65 mg tablet 2 tab PO Q6H PRN (Reason: pain) Qty: 90 1RF Primary Care Provider: Jean Horne Referrals: Jean Horne DO [Primary Care Provider, Internal Medicine] Activity Restrictions/Additional Instructions: Be sure to follow-up with your primary care doctor do not hesitate to return if getting worse Print Language: Kazakh Disposition Disposition: Home, Self Care
[2025-02-25 01:55] VITALS: BP 109/74; PULSE 67; RESP 18; TEMP 36.6; O2SAT 100
== END 2025-02-25 01:56 | disposition home or self-care (01) ==
PROVIDERS: Emergency Provider Specialist/Technologist Athletic Trainer; PCP Family Medicine; Visit Provider Specialist/Technologist Athletic Trainer
DX: R51.9 Headache, unspecified (principal); M62.830 Muscle spasm of back
CPT/HCPCS: 96372; 99283